=== PATIENT | female | born 1960 | race Caucasian/White ===

== ENCOUNTER 2020-04-13 15:07 | Outpatient (REF) | payer MEDICARE, MEDICAID, SELFPAY | END 2020-04-13 15:08 | disposition home or self-care (01) | LOC: HO.LAB 15:07 | PROVIDERS: PCP Internal Medicine Geriatric Medicine; Visit Provider Internal Medicine | DX: Z20.828 Contact with and (suspected) exposure to other viral communicable diseases (principal) | CPT/HCPCS: C9803; U0003 ==

== ENCOUNTER 2020-04-29 10:55 | Outpatient (REF) | payer MEDICARE, MEDICAID, SELFPAY | END 2020-04-29 10:56 | disposition home or self-care (01) | LOC: HO.LAB 10:55 | PROVIDERS: Visit Provider Internal Medicine | DX: Z20.828 Contact with and (suspected) exposure to other viral communicable diseases (principal) | CPT/HCPCS: C9803; U0003 ==

== ENCOUNTER → 2020-05-18 11:12 | Outpatient (BNVA) | payer MEDICARE, MEDICAID, SELFPAY | PROVIDERS: PCP Internal Medicine Geriatric Medicine; Visit Provider Nurse Practitioner | DX: Z13.89 Encounter for screening for other disorder (principal) | CPT/HCPCS: Q3014 ==

== ENCOUNTER 2020-10-05 10:56 | Outpatient (REF) | payer MEDICARE, MEDICAID, SELFPAY ==
--- NOTE | ~2020-10-05 | XR_ITS ---
EXAMINATION: XR TIBIA AND FIBULA, RIGHT CLINICAL INFORMATION: Right lower leg pain. History of falling. COMPARISON: None TECHNIQUE: AP and lateral views of the right tibia and fibula were obtained. FINDINGS: There is no evidence of acute fracture or dislocation of the right tibia or fibula. Soft tissue swelling seen about the anterior aspect of the proximal tibia. XR/XR tibia fibula RT 2V IMPRESSION: No evidence of acute fracture or dislocation of the right tibia or fibula.
== END 2020-10-05 10:57 | disposition home or self-care (01) ==
LOC: HO.XRAY 10:56
PROVIDERS: PCP Internal Medicine Geriatric Medicine; Visit Provider Emergency Medicine
DX: M79.661 Pain in right lower leg (principal); Z91.81 History of falling
CPT/HCPCS: 73590

== ENCOUNTER 2020-12-02 16:45 | Outpatient (REF) | payer MEDICARE, MEDICAID, SELFPAY ==
--- NOTE | ~2020-12-02 | XR_ITS ---
EXAMINATION: XR RIBS, BILATERAL CLINICAL INFORMATION: Pleurodynia COMPARISON: Previous chest x-ray January 2016 TECHNIQUE: 3 views of the bilateral ribs and one view of the chest were obtained. FINDINGS: The cardiac and mediastinal contours are stable. The thoracic aorta is tortuous. The lungs are clear. There is no pleural effusion or pneumothorax. There are degenerative changes of the spine. XR/XR ribs BI min 4V w CXR1V IMPRESSION: Normal-appearing ribs. Degenerative changes of the thoracic spine. Tortuous thoracic aorta.
== END 2020-12-02 16:46 | disposition home or self-care (01) ==
LOC: HO.XRAY 16:45
PROVIDERS: PCP Internal Medicine Geriatric Medicine; Visit Provider Internal Medicine
DX: R07.81 Pleurodynia (principal)
CPT/HCPCS: 71111

== ENCOUNTER 2021-03-31 11:20 | Outpatient (REF) | payer MEDICARE, MEDICAID, SELFPAY ==
--- NOTE | ~2021-03-31 | US_ITS ---
EXAMINATION: US RETROPERITONEAL COMPLETE (RENAL) CLINICAL INFORMATION: Gross hematuria. COMPARISON: CT abdomen and pelvis 02/17/2019 TECHNIQUE: Real-time imaging of the kidneys and bladder. FINDINGS: RIGHT KIDNEY: 11.5 x 5.9 x 6.1 cm (SAG x AP x TRV). The kidney is normal in size, contour, and echogenicity. Renal cortical thickness is normal. No focal parenchymal lesions or hydronephrosis. Cluster of calculi at the upper pole measuring up to 1.2 cm altogether. LEFT KIDNEY: 11.6 x 6.1 x 4.9 cm (SAG x AP x TRV). The kidney is normal in size, contour, and echogenicity. Renal cortical thickness is normal. No renal calculi or focal parenchymal lesions. There is mild hydronephrosis noted. BLADDER: Well distended and normal. Bilateral ureteral jets are demonstrated. Prevoid bladder volume is 793 mL. Postvoid bladder volume is 21 mL. US/US retroperitoneal comp IMPRESSION: Mild left hydronephrosis. No left-sided calculi seen. Cluster of right upper pole renal calculi.
== END 2021-03-31 11:21 | disposition home or self-care (01) ==
LOC: HO.HMGCX 11:20
PROVIDERS: PCP Internal Medicine Geriatric Medicine; Visit Provider Internal Medicine Geriatric Medicine
DX: R31.0 Gross hematuria (principal); Z87.442 Personal history of urinary calculi
CPT/HCPCS: 76770

== ENCOUNTER 2021-08-16 12:19 | Outpatient (REF) | payer MEDICARE, MEDICAID, SELFPAY ==
--- NOTE | ~2021-08-16 | MM_ITS ---
EXAMINATION: MM SCREENING DIGITAL BREAST TOMOSYNTHESIS, BILATERAL CLINICAL INFORMATION: Screening. Asymptomatic. The lifetime risk of breast cancer based on the Tyrer-Cuzick Model is 8.3%. COMPARISON: Mammography: October 25, 2017 and studies dating back to April 29, 2010 TECHNIQUE: Digital breast tomosynthesis is performed in both the craniocaudal and mediolateral oblique views along with computer-aided detection (CAD). Synthesized 2D images are generated from the tomosynthesis. FINDINGS: There are scattered areas of fibroglandular density (ACR BI-RADS breast composition Category b). There are no significant masses, abnormal calcifications, or other abnormalities. MM/MM tomosynthesis screening BI IMPRESSION: There are no significant changes from prior study. ASSESSMENT: BI-RADS 1: Negative RECOMMENDATION: Routine annual mammography screening. This patient's information was entered into a reminder system with a target due date for their next mammogram.
== END 2021-08-16 12:20 | disposition home or self-care (01) ==
LOC: HO.MAMMO 12:19
PROVIDERS: Visit Provider Internal Medicine Geriatric Medicine
DX: Z12.31 Encounter for screening mammogram for malignant neoplasm of breast (principal)
CPT/HCPCS: 77063; 77067

== ENCOUNTER 2022-03-23 11:14 | Emergency (ER) | payer MEDICARE, MEDICAID, SELFPAY ==
--- NOTE | ~2022-03-23 | CT_ITS ---
EXAMINATION: CT ABDOMEN AND PELVIS WITH CONTRAST CLINICAL INFORMATION: Upper abdominal pain status post fall. COMPARISON: CT scan of the abdomen and pelvis dated 02/17/2019. TECHNIQUE: Multidetector volumetric images were obtained from the superior aspect of the liver through the pubic symphysis following administration 85 mL of Omnipaque 350 intravenous contrast. Sagittal and coronal reformatted images were obtained on the technologist's workstation. Oral contrast: No This CT examination was performed using dose optimization techniques as appropriate, variously including the following: *Automated exposure control *Adjustment of mA and/or kV according to patient size (this includes techniques or standardized protocols for targeted exams where dose is matched to indication/reason for exam; i.e. extremities or head) *Use of iterative reconstruction technique DLP: 395 mGy-cm FINDINGS: LUNG BASES: The visualized lung bases are unremarkable. LIVER, GALLBLADDER, AND BILIARY TREE: Diffuse hepatic low-attenuation. Tiny low-attenuation hepatic foci are seen in the left and right lobes. PANCREAS: Unremarkable. SPLEEN: Absent. ADRENAL GLANDS: Unremarkable. KIDNEYS AND URETERS: Nonobstructing intrarenal calculi bilaterally. A retail field representative calculus in the upper pole the right kidney measures 1.0 cm (image 59, series 7). No hydroureteronephrosis. BLADDER: Unremarkable. GASTROINTESTINAL TRACT: The stomach shows mildly prominent perigastric vessels proximally without significant change. No significant focal mural abnormality or change. The small bowel is unremarkable. No evidence for acute appendicitis. Mild diverticulosis is seen distally in the colon, most pronounced in the sigmoid colon without surrounding abnormality. ABDOMINAL WALL: Left upper quadrant anterior, wall mesh repair. Herniation of the mesh and fat is again seen to a similar degree. There has been interval development of an associated complex fluid collection adjacent to the mesh measuring approximately 3.9 x 3.0 x 3.2 cm (image 32, series 3; image 45, series 8). This collection abuts the anterior margin of the subjacent mid one third of the transverse colon. LYMPH NODES: No lymphadenopathy. VASCULAR: Unremarkable. PELVIC VISCERA: Retroverted/retroflexed uterus. OSSEOUS STRUCTURES: L4-L5 mild degenerative disc disease and grade 1 anterolisthesis without acute abnormality or change. CT/CT abdomen pelvis w IV con IMPRESSION: 1. Left upper quadrant anterior abdominal wall mesh repair with herniation of fat and mesh to a similar degree. There has been interval development of an associated complex fluid collection adjacent to the mesh. This collection abuts the anterior margin of the subjacent mid one third of the transverse colon. This could represent a postoperative hematoma or seroma. An abscess cannot be excluded. No definitive fistulous tract with the subjacent transverse colon. Correlation with physical exam is recommended. Short-term imaging follow-up with contrast-enhanced abdominal CT is recommended in 3 months. 2. Hepatic steatosis. Tiny low-attenuation hepatic foci are too small adequately characterize, but demonstrate benign features and likely represent cysts. 3. Nonobstructing intrarenal calculi bilaterally. 4. Mild distal colonic diverticulosis without evidence for acute diverticulitis. 5. L4-L5 mild degenerative disc disease and grade 1 anterolisthesis without significant change.
[2022-03-23 11:32] VITALS: BP 169/106; PULSE 78; RESP 18; TEMP 36.7; O2SAT 97; BMI 25.4
[2022-03-23 12:57] LABS: Hemoglobin 14.7 g/dl (12.0-16.0); Mean Corpuscular HGB Conc 33.4 g/dl (31.0-35.0); Mean Corpuscular Hemoglobin 28.7 pg (27.0-33.0); Mean Corpuscular Volume 85.8 fL (80.0-98.0); Mean Platelet Volume 8.8 fL (9.4-12.3); Platelet Count 557 X10*3/uL (160-400); Red Blood Count 5.13 X10*6/uL (4.20-5.50); Red Cell Distribution Width 13.3 % (11.0-16.0); White Blood Count 12.5 X10*3/uL (4.8-10.8)
[2022-03-23 13:01] LABS: Appearance Urine Cloudy; Color Urine Dark Yellow; Glucose Urine UA Negative (Negative); Leukocyte Esterase Urine Moderate (2+) (Negative); Nitrite Urine Negative (Negative); PH 5.5 (5.0-9.0); Specific Gravity - Urine 1.025 (1.005-1.025); UMIC TRIGGER UACC YES; Urine Blood Negative (Negative); Urine Ketones Trace mg/dL (Negative); Urine Protein Trace mg/dL (Neg-Trace)
[2022-03-23 13:05] LABS: Bacteria Urine 4+ (None Seen); Hyaline Casts Urine 0-2 /LPF (0-2); Squamous Epithelial Cell Urine >20 /HPF (0-2); UACC Culture Trigger YES; WBC Urine 21-50 /HPF (0-5)
--- NOTE | 2022-03-23 13:08 | ED.ABDPAIN ---
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 Since then the area has become more sore and painful. No associated GI or symptoms. Worried she injured her prior surgical site MD elicited complaint: abdominal pain Pertinent past history: none Onset (ago): week(s) (1) Pain Consistency: constant Location: LUQ Severity: moderate Quality: aching and dull Radiation: none Migration to: no migration Exacerbating factors: movement Relieving factors: nothing Context: recent injury Associated symptoms: denies other symptoms Related Data Previous Rx's Medication Instructions Recorded dicyclomine 20 mg tablet 20 mg PO QID 30 days #120 tabs 04/27/20 simethicone 180 mg capsule (Gas 180 mg PO QID #120 caps 04/27/20 Relief (simethicone)) Allergies Allergy/AdvReac Type Severity Reaction Status Date / Time lisinopril [LISINOPRIL] Allergy Intermediate COUGH Verified 05/18/20 11:12 Penicillins [PENICILLINS] Allergy Intermediate HIVES Verified 05/18/20 11:12 glyburide Allergy Unknown severe Verified 05/18/20 11:12 hypoglycemia penicillin V Allergy Unknown hives Verified 05/18/20 11:12 Pt states no known food Allergy Unknown none Uncoded 04/27/20 13:45 allerg Review of Systems Review of Systems Constitutional : No Weight loss, No Fever, No Chills ENT/Mouth : No sore throat, No Rhinorrhea Eyes: No Swelling, No Redness Cardiovascular : No Chest Pain, No SOB, NoEdema Respiratory : No Cough, No Sputum, No Wheezing Gastrointestinal : no Nausea, noVomiting, no Diarrhea, positive abdominal Pain, No Hematochezia, No Melena Genitourinary : No Dysuria, No Urinary Frequency, No Hematuria, No Urgency Musculoskeletal : No joint pain, No Myalgias, No Joint Swelling Skin : No Skin Lesions, No rash Neuro : No Weakness, No Numbness, No Dizziness, No Headache Psych : No Anxiety/Panic, No Depression Heme/Lymph: No Bruising, No Lymphadenopathy Endocrine : No Polyuria, No Polydipsia All other systems reviewed and are negative. [facility] Past Medical History Attestation statement: The following information was validated with the patient. Medical History Depression with anxiety Diabetes Hernia of abdominal wall Hypertension Osteoarthritis Surgical History H/O esophagogastroduodenoscopy History of colonoscopy Family History Family History (Updated 04/27/20 @ 13:51 by Linda Merino [facility]) Father Throat cancer Dementia Mother Abdominal aortic aneurysm Diverticulitis Brother Diverticulitis Social History Social History (Updated 03/23/22 @ 13:43 by Akila Glynn DO) Alcohol intake: current Alcohol intake frequency: holidays/special occasions only Patient Tobacco Use Status: Never used Tobacco Substance Use Type: Marijuana Advance Directives: No Advance Directives Information Provided: No Physical Exam ED Vital Signs: Vital Signs - 24 hr 03/23/22 11:32 Temperature 98.0 F Pulse Rate 78 Respiratory Rate 18 Blood Pressure 169/106 H Pulse Oximetry 97 Oxygen Delivery Method Room Air BMI result Body Mass Index 25.4 Appearance: Alert. Oriented X3. No acute distress. Eyes: Pupils equal, round and reactive to light. ENT: Pharynx normal. Neck: Normal inspection. Neck supple. CVS: Normal heart rate and rhythm. Pulses normal. Respiratory: No respiratory distress. Breath sounds normal. Abdomen: Soft and ttp along incision reproduces pain no rib ttp Skin: Skin warm and dry. Normal skin color. Normal skin turgor. Extremities: No lower extremity edema. No calf ttp Neuro: Oriented X 3. No motor deficit. No sensory deficit. Course Course Course Narrative: could be small abdominal wall hematoma - not on blood thinners given started after fall suspect hematoma or seroma signed out to Dr. Cesar pending discussion with Dr. 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 IV morphine for pain. Lab Data Result diagrams: 03/23/22 12:46 03/23/22 12:46 Labs: Lab Results 03/23/22 03/23/22 03/23/22 Range/Units 12:46 12:46 12:46 WBC 12.5 H (4.8-10.8) X10*3/uL RBC 5.13 (4.20-5.50) X10*6/uL Hgb 14.7 (12.0-16.0) g/dl Hct 44.0 (37.0-47.0) % MCV 85.8 (80.0-98.0) fL MCH 28.7 (27.0-33.0) pg MCHC 33.4 (31.0-35.0) g/dl RDW 13.3 (11.0-16.0) % Plt Count 557 H (160-400) X10*3/uL MPV 8.8 L (9.4-12.3) fL Immature Gran % (Auto) 0.2 (0.0-0.4) % Neut % (Auto) 39.9 L (45-73) % Lymph % (Auto) 47.4 H (20-40) % [place] % (Auto) 7.2 (2-11) % Eos % (Auto) 3.7 (0-4) % Baso % (Auto) 1.6 (0-2) % Lymph # (Auto) 5.9 H (1.2-4.9) X10*3/uL [place] # (Auto) 0.9 (0.1-1.2) X10*3/uL Eos # (Auto) 0.5 H (0.0-0.4) X10*3/uL Baso # (Auto) 0.2 (0.0-0.2) X10*3/uL Abs Immat Gran (auto) 0.03 (0.00-0.03) X10*3/uL Absolute Neuts (auto) 4.9 (2.0-8.3) x10*3/uL Absolute Nucleated RBC 0.000 (0.0-0.012) X10*3/uL Nucleated RBC % (auto) 0.0 (0.0-0.2) /100WBC Smear Tech's Comments VERIFIED Sodium 142 (135-145) mmol/L Potassium 4.4 (3.3-5.1) mmol/L Chloride 101 (96-108) mmol/L Carbon Dioxide 29 (22-29) mmol/L Anion Gap 16 (12-20) BUN 12 (9-16) mg/dL Creatinine 0.74 (0.5-1.4) mg/dL Estim Creat Clear Calc 67.0 Estimated GFR > 60 Random Glucose 113 (60-115) mg/dL Calcium 10.2 (8.4-10.2) mg/dL Magnesium 1.9 (1.6-2.6) mg/dL Total Bilirubin 0.8 (0.0-1.0) mg/dL Direct Bilirubin 0.3 (0.0-0.5) mg/dL AST 18 (5-31) U/L ALT 12 (0-31) U/L Alkaline Phosphatase 66 (39-117) U/L Troponin I High Sens < 3.5 (<3.5-17.0) ng/L Total Protein 8.1 H (6.5-8.0) g/dL Albumin 4.7 (3.5-5.0) g/dL Lipase 27 (8-78) U/L Urine Color Urine Appearance Urine pH (5.0-9.0) Ur Specific [place] (1.005-1.025) Urine Protein (Neg-Trace) mg/dL Urine Glucose (UA) (Negative) mg/dL Urine Ketones (Negative) mg/dL Urine Blood (Negative) Urine Nitrite (Negative) Ur Leukocyte Esterase (Negative) Urine RBC (0-2) /HPF Urine WBC (0-5) /HPF Ur Squamous Epith Cells (0-2) /HPF Urine Bacteria (None Seen) Hyaline Casts (0-2) /LPF COVID-19 ([facility]) (Negative) COVID-19 Clin Com 03/23/22 03/23/22 Range/Units 12:46 12:53 WBC (4.8-10.8) X10*3/uL RBC (4.20-5.50) X10*6/uL Hgb (12.0-16.0) g/dl Hct (37.0-47.0) % MCV (80.0-98.0) fL MCH (27.0-33.0) pg MCHC (31.0-35.0) g/dl RDW (11.0-16.0) % Plt Count (160-400) X10*3/uL MPV (9.4-12.3) fL Immature Gran % (Auto) (0.0-0.4) % Neut % (Auto) (45-73) % Lymph % (Auto) (20-40) % [place] % (Auto) (2-11) % Eos % (Auto) (0-4) % Baso % (Auto) (0-2) % Lymph # (Auto) (1.2-4.9) X10*3/uL [place] # (Auto) (0.1-1.2) X10*3/uL Eos # (Auto) (0.0-0.4) X10*3/uL Baso # (Auto) (0.0-0.2) X10*3/uL Abs Immat Gran (auto) (0.00-0.03) X10*3/uL Absolute Neuts (auto) (2.0-8.3) x10*3/uL Absolute Nucleated RBC (0.0-0.012) X10*3/uL Nucleated RBC % (auto) (0.0-0.2) /100WBC Smear Tech's Comments Sodium (135-145) mmol/L Potassium (3.3-5.1) mmol/L Chloride (96-108) mmol/L Carbon Dioxide (22-29) mmol/L Anion Gap (12-20) BUN (9-16) mg/dL Creatinine (0.5-1.4) mg/dL Estim Creat Clear Calc Estimated GFR Random Glucose (60-115) mg/dL Calcium (8.4-10.2) mg/dL Magnesium (1.6-2.6) mg/dL Total Bilirubin (0.0-1.0) mg/dL Direct Bilirubin (0.0-0.5) mg/dL AST (5-31) U/L ALT (0-31) U/L Alkaline Phosphatase (39-117) U/L Troponin I High Sens (<3.5-17.0) ng/L Total Protein (6.5-8.0) g/dL Albumin (3.5-5.0) g/dL Lipase (8-78) U/L Urine Color Dark Yellow Urine Appearance Cloudy Urine pH 5.5 (5.0-9.0) Ur Specific [place] 1.025 (1.005-1.025) Urine Protein Trace (Neg-Trace) mg/dL Urine Glucose (UA) Negative (Negative) mg/dL Urine Ketones Trace (Negative) mg/dL Urine Blood Negative (Negative) Urine Nitrite Negative (Negative) Ur Leukocyte Esterase Moderate (2+) H (Negative) Urine RBC 3-5 H (0-2) /HPF Urine WBC 21-50 H (0-5) /HPF Ur Squamous Epith Cells >20 (0-2) /HPF Urine Bacteria 4+ (None Seen) Hyaline Casts 0-2 (0-2) /LPF COVID-19 ([facility]) Negative (Negative) COVID-19 Clin Com See Note Discharge Plan Discharge Clinical Impression: Abdominal pain, Abdominal wall hematoma Patient Disposition: Still a Patient Instructions: Abdominal Pain (ED), Contusion in Adults (ED) Additional Instructions: return to ED for any worsening symptoms or concerns CT/CT abdomen pelvis w IV con IMPRESSION: 1.? Left upper quadrant anterior abdominal wall mesh repair with herniation of fat and mesh to a similar degree. There has been interval development of an associated complex fluid collection adjacent to the mesh. This collection abuts the anterior margin of the subjacent mid one third of the transverse colon. This could represent a postoperative hematoma or seroma. An abscess cannot be excluded. No definitive fistulous tract with the subjacent transverse colon. Correlation with physical exam is recommended. Short-term imaging follow-up with contrast-enhanced abdominal CT is recommended in 3 months. 2.? Hepatic steatosis. Tiny low-attenuation hepatic foci are too small adequately characterize, but demonstrate benign features and likely represent cysts. 3.? Nonobstructing intrarenal calculi bilaterally. 4.? Mild distal colonic diverticulosis without evidence for acute diverticulitis. 5.? L4-L5 mild degenerative disc disease and grade 1 anterolisthesis without significant change. Prescriptions: No Action dicyclomine 20 mg tablet 20 mg PO QID 30 Days Qty: 120 3RF simethicone [Gas Relief (simethicone)] 180 mg capsule 180 mg PO QID Qty: 120 3RF Rx Instructions: after meals
[2022-03-23 13:13] LABS: COVID-19 Test Negative (Negative)
[2022-03-23 13:16] LABS: Alanine Aminotransferase 12 U/L (0-31); Albumin Level 4.7 g/dL (3.5-5.0); Alkaline Phosphatase 66 U/L (39-117); Anion Gap 16 (12-20); Aspartate Amino Transferase 18 U/L (5-31); Bilirubin Direct 0.3 mg/dL (0.0-0.5); Bilirubin Total 0.8 mg/dL (0.0-1.0); Blood Urea Nitrogen 12 mg/dL (9-16); Calcium 10.2 mg/dL (8.4-10.2); Carbon Dioxide 29 mmol/L (22-29); Chloride 101 mmol/L (96-108); Estimated Glomerular Filt Rate > 60; Glucose Random 113 mg/dL (60-115); Lipase 27 U/L (8-78); Magnesium 1.9 mg/dL (1.6-2.6); Potassium 4.4 mmol/L (3.3-5.1); Sodium 142 mmol/L (135-145); Total Protein 8.1 g/dL (6.5-8.0)
[2022-03-23 13:23] LABS: Troponin-I High Sensitivity < 3.5 ng/L (<3.5-17.0)
[2022-03-23 13:32] LABS: Basophils Absolute Auto 0.2 X10*3/uL (0.0-0.2); Basophils Percent Auto 1.6 % (0-2); Eosinophils Absolute Auto 0.5 X10*3/uL (0.0-0.4); Eosinophils Percent Auto 3.7 % (0-4); Imm Gran Abs Auto 0.03 X10*3/uL (0.00-0.03); Imm Gran Pct Auto 0.2 % (0.0-0.4); Lymphocytes Percent Auto 47.4 % (20-40); MANUAL DIFF FLAG SCAN; Monocytes Absolute Auto 0.9 X10*3/uL (0.1-1.2); Monocytes Percent Auto 7.2 % (2-11); Neutrophils Absolute Auto 4.9 x10*3/uL (2.0-8.3); Neutrophils Percent Auto 39.9 % (45-73); SCAN SMEAR FLAG 1
[2022-03-23 13:34] LABS: Lymphocytes Absolute Auto 5.9 X10*3/uL (1.2-4.9)
[2022-03-23 13:48] LABS: SLIDE REVIEW VERIFIED
[2022-03-23] MEDS: Morphine Sulfate 4 MG/ML CARTRIDGE IVPUSH (13:54)
[2022-03-23] MEDS: ondansetron HCL 4 MG/2 ML VIAL IVPUSH (13:54)
[2022-03-23] MEDS: iohexoL 350 MG/ML 100 ML INFUS..BTL IV (15:02)
== END 2022-03-23 17:31 | disposition home or self-care (01) ==
PROVIDERS: Emergency Medicine; Emergency Provider Emergency Medicine; PCP Internal Medicine Geriatric Medicine
DX: R10.12 Left upper quadrant pain (principal); Z79.899 Other long term (current) drug therapy; Z20.822 Contact with and (suspected) exposure to COVID-19
CPT/HCPCS: 74177; 80048; 80076; 81001; 81003; 83690; 83735; 84484; 85025; 87086; 87635; 96374; 96375; 99284; J2270; J2405; Q9967

== ENCOUNTER 2022-08-23 10:58 | Outpatient (REF) | payer MEDICARE, MEDICAID, SELFPAY ==
--- NOTE | ~2022-08-23 | MM_ITS ---
EXAMINATION: MM SCREENING DIGITAL BREAST TOMOSYNTHESIS, BILATERAL CLINICAL INFORMATION: Screening. Asymptomatic. The lifetime risk of breast cancer based on the Tyrer-Cuzick Model is 10%. COMPARISON: Mammography: 08/16/2021, 10/25/2017, 12/09/2015 TECHNIQUE: Digital breast tomosynthesis is performed in both the craniocaudal and mediolateral oblique views along with computer-aided detection (CAD). Synthesized 2D images are generated from the tomosynthesis. FINDINGS: The breasts are almost entirely fatty (ACR BI-RADS breast composition Category a). There are no significant masses, abnormal calcifications, or other abnormalities. No architectural abnormality or developing density or significant change from prior studies. The axilla are unremarkable. MM/MM tomosynthesis screening BI IMPRESSION: No mammographic evidence of malignancy. ASSESSMENT: BI-RADS 1: Negative RECOMMENDATION: Routine annual mammography screening. This patient's information was entered into a reminder system with a target due date for their next mammogram.
== END 2022-08-23 10:59 | disposition home or self-care (01) ==
LOC: HO.MAMMO 10:58
PROVIDERS: PCP Internal Medicine Geriatric Medicine; Visit Provider Internal Medicine Geriatric Medicine
DX: Z12.31 Encounter for screening mammogram for malignant neoplasm of breast (principal)
CPT/HCPCS: 77063; 77067

== ENCOUNTER 2023-10-12 17:37 | Outpatient (REF) | payer MEDICARE, MEDICAID, SELFPAY | END 2023-10-12 17:38 | disposition home or self-care (01) | LOC: HO.HHCLNP 17:37 | PROVIDERS: Visit Provider Registered Nurse | DX: R30.0 Dysuria (principal) | CPT/HCPCS: 87086 ==

== ENCOUNTER 2023-10-24 10:23 | Outpatient (REF) | payer MEDICARE, MEDICAID, SELFPAY ==
[2023-10-24 11:52] LABS: Basophils Absolute Auto 0.2 X10*3/uL (0.0-0.2); Basophils Percent Auto 1.7 % (0-2); Eosinophils Absolute Auto 0.7 X10*3/uL (0.0-0.4); Eosinophils Percent Auto 5.6 % (0-4); Hematocrit 41.6 % (37.0-47.0); Hemoglobin 13.9 g/dl (12.0-16.0); Imm Gran Abs Auto 0.03 X10*3/uL (0.00-0.03); Imm Gran Pct Auto 0.3 % (0.0-0.4); Lymphocytes Absolute Auto 7.3 X10*3/uL (1.2-4.9); Lymphocytes Percent Auto 62.6 % (20-40); MANUAL DIFF FLAG SCAN; Mean Corpuscular HGB Conc 33.4 g/dl (31.0-35.0); Mean Corpuscular Hemoglobin 29.7 pg (27.0-33.0); Mean Corpuscular Volume 88.9 fL (80.0-98.0); Mean Platelet Volume 9.3 fL (9.4-12.3); Monocytes Absolute Auto 0.8 X10*3/uL (0.1-1.2); Neutrophils Absolute Auto 2.7 x10*3/uL (2.0-8.3); Neutrophils Percent Auto 22.8 % (45-73); Platelet Count 523 X10*3/uL (160-400); Red Blood Count 4.68 X10*6/uL (4.20-5.50); Red Cell Distribution Width 13.6 % (11.0-16.0); SCAN SMEAR FLAG 1; White Blood Count 11.7 X10*3/uL (4.8-10.8)
[2023-10-24 12:16] LABS: Alanine Aminotransferase 14 U/L (0-31); Albumin Level 4.5 g/dL (3.5-5.0); Alkaline Phosphatase 69 U/L (39-117); Anion Gap 14 (12-20); Aspartate Amino Transferase 17 U/L (5-31); Bilirubin Total 0.5 mg/dL (0.0-1.0); Blood Urea Nitrogen 10 mg/dL (9-16); Calcium 10.2 mg/dL (8.4-10.2); Carbon Dioxide 29 mmol/L (22-29); Chloride 102 mmol/L (96-108); Cholesterol 277 mg/dL (<200); Estimated Glomerular Filt Rate > 60; Glucose Random 138 mg/dL (60-115); HDL Cholesterol 53 mg/dL (>40); LDL Cholesterol Calculated 171 mg/dL (<100); Potassium 4.1 mmol/L (3.3-5.1); Sodium 141 mmol/L (135-145); Total Protein 8.1 g/dL (6.5-8.0); Triglycerides 269 mg/dL (<150)
[2023-10-24 12:36] LABS: Creatinine Urine 17.43 mg/dL; Microalbum/Creatinine Ratio Ur 34.4 ug/mg cr (<30)
[2023-10-24 13:43] LABS: SLIDE REVIEW VERIFIED
== END 2023-10-24 10:24 | disposition home or self-care (01) ==
LOC: HO.HHCL 10:23
PROVIDERS: Visit Provider Internal Medicine Geriatric Medicine
DX: E11.9 Type 2 diabetes mellitus without complications (principal); F33.2 Major depressive disorder, recurrent severe without psychotic features; I10 Essential (primary) hypertension; Z90.81 Acquired absence of spleen
CPT/HCPCS: 36415; 80053; 80061; 82043; 82570; 85025

== ENCOUNTER 2023-12-26 10:55 | Outpatient (REF) | payer MEDICARE, MEDICAID, SELFPAY ==
[2023-12-26 12:35] LABS: Blood Urea Nitrogen 10 mg/dL (9-16); Estimated Glomerular Filt Rate > 60
== END 2023-12-26 10:56 | disposition home or self-care (01) ==
LOC: HO.HHCL 10:55
PROVIDERS: Visit Provider Internal Medicine Geriatric Medicine
DX: K43.9 Ventral hernia without obstruction or gangrene (principal)
CPT/HCPCS: 36415; 82565; 84520

== ENCOUNTER 2024-02-05 13:59 | Outpatient (AMB) | payer MEDICARE, MEDICAID, SELFPAY ==
[2024-02-05 14:02] VITALS: BP 155/80; PULSE 53; BMI 27.0
--- NOTE | 2024-02-05 14:02 | A.OFFVIS_ITS ---
Vital Signs 3 02/05/24 14:02 Height 5 ft 1 in Weight 142 lb 13.753 oz BMI 27.0 BP 155/80 H Blood Pressure Location Lt brachial Position Sitting Pulse 53 Intake Visit Reasons: Colonoscopy screening Intake Note: New patient in office today for colonoscopy screening. CC: Patient reports doing well from GI standpoint. 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 Accompanied by: Self / Same As Patient Allergies lisinopril [LISINOPRIL] Allergy (Intermediate, Verified 02/05/24 14:06) COUGH Penicillins [PENICILLINS] Allergy (Intermediate, Verified 02/05/24 14:06) HIVES glyburide Allergy (Unknown, Verified 02/05/24 14:06) severe hypoglycemia penicillin V Allergy (Unknown, Verified 02/05/24 14:06) hives Pt states no known food allerg Allergy (Unknown, Uncoded 04/27/20 13:45) none HPI HPI Colonoscopy screening: Details: Assessment & Plan (1) Periumbilical abdominal pain: Code(s): R10.33 - Periumbilical pain Category: Medical Plan: She tells me that she is doing okay. She is uncertain how much the dicyclomine is helping, although she admits she does skip doses. She is also now on doxycycline for a tick bite so there are a lot of variables including the fact that she is eating differently over the holidays that her difficult to factor in. At this point she is willing to continue to experiment with the medication and is agreeable to a 3-4 month follow-up. In the future we could consider moving to something like initial me if she dosing schedule is a problem but I will let her experiment with what she has 3 now since she seals she has excess she shows Using dicyclomine 20mg qid and simethicone. (2) SSBE (short-segment Quintana's esophagus): Comment: Last EGD for surveillance 01/2020 would be due again in 2021 aeb Code(s): K22.70 - Quintana's esophagus without dysplasia Category: Medical (3) GERD (gastroesophageal reflux disease): Code(s): K21.9 - Gastro-esophageal reflux disease without esophagitis Category: Medical (4) Irritable bowel syndrome with both constipation and diarrhea: Code(s): K58.2 - Mixed irritable bowel syndrome Category: Medical PMX Hypertension Diabetes Barretts esophagus GERD IBS-M Generalized osteoarthritis hands * . LABS: Laboratory Tests 10/24/23 10:25 WBC 11.7 H Hgb 13.9 Hct 41.6 Plt Count 523 H Estimated GFR > 60 Total Bilirubin 0.5 AST 17 ALT 14 Alkaline Phosphatase 69 TODAY'S VISIT Patient has been lost to follow-up since 2019 and is apparently here today for colonoscopy re-screening he, she would also be due for surveillance for her Barretts esophagus. Her last was in 2019 but no biopsy for SSBE. She is having some LLQ abd pain that is tender it is worse with sitting or pushing on the area and it has some radiation to the umbilicus. She DOES have a hx of hernia repair with mesh, so I think A CT is in order to make sure there is no inflammation that would effect scope. Her past IBS-M has been well controlled. She is eating better and not on the go and her HB and GERD has been improved. She has lost some weight as well wtih intentional dieting. She is having a lot of problems with Medicare and her coverage. She had one episode of waking up during endoscopy, no other anesthesia or sedation problems. She denies any cardiac or respiratory problems. There are no infectious disease problems known. No known FHX crc or polyps and she had a neg colonoscopy in 2011. ROV after CT scan. [facility] Medical History (Updated 02/05/24 @ 14:16 by ABNER Abreu) Asplenia Depression with anxiety Hernia of abdominal wall Diabetes Osteoarthritis Hypertension Surgical History (Updated 02/05/24 @ 14:15 by ABNER Abreu) History of incisional hernia repair History of pancreatectomy H/O splenectomy H/O esophagogastroduodenoscopy History of colonoscopy Family History Father Throat cancer Dementia Mother Abdominal aortic aneurysm Diverticulitis Brother Diverticulitis Social History Alcohol intake: current Alcohol intake frequency: holidays/special occasions only Patient Tobacco Use Status: Never used Tobacco Substance Use Type: Marijuana Review of Systems Const Denies fatigue, Denies fever(s), Denies night sweats, Denies poor appetite and Denies weight loss Eyes Details: glasses Reports requires corrective lenses ENT Reports Normal hearing present, Denies dental pain, Denies dysphagia, Denies hearing loss, Denies mouth pain, Denies odynophagia, Denies throat swelling, Denies tongue swelling and Reports other (Dentition adequate) Card Reports no additional complaints Resp Reports no additional complaints GI Details: Reports abdominal pain, Denies melena, Denies bloating, Denies hematochezia, Denies constipation, Denies GI cramping, Denies dysphagia, Denies excessive flatus, Denies early satiety, Reports heartburn, Denies diarrhea, Denies nausea, Denies odynophagia, Denies vomiting and Denies hematemesis Musc Reports deformity, Reports arthralgias and Reports joint swelling Skin/Breast Denies pruritus, Denies lesions, Denies rash and Denies jaundice Neuro Reports Normal hearing present and Denies Abnormal speech present Psych Reports anxiety, Reports depression, Denies homicidal ideation and Denies suicidal ideation Endo Denies fatigue Aller/Immun Denies throat swelling and Denies tongue swelling Physical Exam Vital Signs: Last Vital Signs Pulse 53 02/05/24 14:02 BP 155/80 H 02/05/24 14:02 BMI result Body Mass Index 27.0 Const General: cooperative, no acute distress, well developed and well groomed Nutritional Appearance: well nourished and overweight Orientation/consciousness: oriented to person, oriented to place and oriented to time Limitations: No language barrier HEENT Head: Yes normocephalic and Yes atraumatic Eyes General: appearance normal, both eyes and all related structures Pupils: Equal, round and reactive pupils present Neck Neck: Yes normal visual inspection and Yes no lymphadenopathy Thyroid: Thyroid normal Resp Effort & Inspection: normal respiratory effort and able to speak in complete sentences Auscultation: clear to auscultation bilaterally Cardio Rate: regular rate Rhythm: regular rhythm Heart sounds: Normal, physiologic split S2 sound present Peripheral pulses: radial pulses present and posterior tibial pulses present GI Inspection: No distended, No Abdominal panniculus present and Yes obesity Palpation (GI): Soft to palpation, Tenderness to palpation present (GI) periumbilically, no guarding, not rigid and No hepatosplenomegaly present Percussion: Yes normal to percussion Auscultation: normal bowel sounds Rectal Exam - Female: deferred Abdomen image: 2 1. scar Skin General skin exam: no rashes or lesions noted, turgor normal, skin not dry, no jaundice, No spider nevi and no striae Rashes: no rashes Nails: normal Neuro General: oriented to person, oriented to place and oriented to time Cranial nerves: Yes Equal, round and reactive pupils present and Yes Normal hearing present Speech: No Abnormal speech present Extrem General: Yes normal to inspection, No clubbing, No cyanosis and No edema Psych Appearance: grossly normal and well kempt Mental Status: mental status grossly normal Speech and movement: Normal speech and movement present Affect: normal affect Attitude: cooperative Thought process: Normal thought process present and not confabulating Thought content: Normal thought content present Insight: Fair insight present (Psych) Judgement: Fair judgement present (Psych) Results Reviewed Results Reviewed: Laboratory Tests 10/24/23 10:25 WBC 11.7 H Hgb 13.9 Hct 41.6 Plt Count 523 H Estimated GFR > 60 Total Bilirubin 0.5 AST 17 ALT 14 Alkaline Phosphatase 69 Assessment & Plan Assessment & Plan (1) SSBE (short-segment Quintana's esophagus): Comment: Last EGD for surveillance 01/2020 would be due again in 2021 aeb, showed metaplasia on her 2014 and 2017 EGD it does not appear was biopsied in 2019 Code(s): K22.70 - Uqintana's esophagus without dysplasia Category: Medical (2) Pre-op examination: Code(s): Z01.818 - Encounter for other preprocedural examination Category: Medical (3) Periumbilical abdominal pain: Code(s): R10.33 - Periumbilical pain Category: Medical Plan Patient has been lost to follow-up since 2019 and is apparently here today for colonoscopy re-screening he, she would also be due for surveillance for her Barretts esophagus. Her last was in 2019 but no biopsy for SSBE. She is having some LLQ abd pain that is tender it is worse with sitting or pushing on the area and it has some radiation to the umbilicus. She DOES have a hx of hernia repair with mesh, so I think A CT is in order to make sure there is no inflammation that would effect scope. Her past IBS-M has been well controlled. She is eating better and not on the go and her HB and GERD has been improved. She has lost some weight as well with intentional dieting. She is having a lot of problems with Medicare and her coverage. She had one episode of waking up during endoscopy, no other anesthesia or sedation problems. She denies any cardiac or respiratory problems. There are no infectious disease problems known. No known FHX crc or polyps and she had a neg colonoscopy in 2011. ROV after CT scan. Orders: Orders 2 EGD/[place] [facility]bo - GI Use Only 02/05/24 K22.70 - Quintana's esophagus without dysplasia, Z01.818 - Encounter for other preprocedural examination CT abdomen pelvis w IV con 02/05/24 R10.33 - Periumbilical pain Medications: New 2 bisacodyl (Dulcolax (bisacodyl)) 10 mg (2 x 5 mg) PO BEDTIME 4 tabs 0RF 2 days peg 3350-electrolytes 236-22.74-6.74 -5.86 gram (Golytely) until fecal effluent is clear; do not exceed a total volume of 2,000 mL 240 mL PO Q10M 4,000 mL 0RF 1 day Z12.11 - Encounter for screening for malignant neoplasm of colon Coding Level of Care Code Est Pt Level 4 (55877) Diagnoses SSBE (short-segment Quintana's esophagus) K22.70 Pre-op examination Z01.818 Periumbilical abdominal pain R10.33 Time Spent (min) 38
== END 2024-02-05 14:47 | disposition home or self-care (01) ==
PROVIDERS: PCP Internal Medicine Geriatric Medicine; Visit Provider Nurse Practitioner
DX: K22.70 Barrett's esophagus without dysplasia (principal); Z01.818 Encounter for other preprocedural examination; R10.33 Periumbilical pain
CPT/HCPCS: 99214

== ENCOUNTER → 2024-02-05 13:59 | Outpatient (BNVA) | payer MEDICARE, MEDICAID, SELFPAY | PROVIDERS: PCP Internal Medicine Geriatric Medicine; Visit Provider Nurse Practitioner | DX: Z01.818 Encounter for other preprocedural examination (principal); R10.33 Periumbilical pain; K22.70 Barrett's esophagus without dysplasia | CPT/HCPCS: 99212 ==

== ENCOUNTER 2024-02-16 10:28 | Outpatient (REF) | payer MEDICARE, MEDICAID, SELFPAY ==
[2024-02-16 12:08] LABS: Anion Gap 12 (12-20); Blood Urea Nitrogen 9 mg/dL (9-16); Calcium 9.2 mg/dL (8.4-10.2); Carbon Dioxide 27 mmol/L (22-29); Chloride 109 mmol/L (96-108); Estimated Glomerular Filt Rate > 60; Glucose Random 122 mg/dL (60-115); Potassium 4.1 mmol/L (3.3-5.1); Sodium 144 mmol/L (135-145)
== END 2024-02-16 10:29 | disposition home or self-care (01) ==
LOC: HO.LAB 10:28
PROVIDERS: PCP Internal Medicine Geriatric Medicine; Visit Provider Internal Medicine Geriatric Medicine
DX: K43.9 Ventral hernia without obstruction or gangrene (principal)
CPT/HCPCS: 36415; 80048

== ENCOUNTER 2024-05-26 07:13 | Outpatient (REF) | payer MEDICARE, MEDICAID, SELFPAY ==
--- NOTE | ~2024-05-26 | CT_ITS ---
CLINICAL HISTORY: R10.33 - Periumbilical pain CT abdomen and pelvis with contrast Comparison: CT - CT ABDOMEN PELVIS W IV CON - 03/23/22 14:[address]/OK/SR - CT ABDOMEN PELVIS W IV CON - 03/23/22 14:21 EDT Findings: The visualized portions of the lungs are normal in appearance. The liver is normal in size without suspicious focal hepatic lesions. Hepatic steatosis. Multiple small hypodensities are too small to characterize statistically representing cyst or hemangioma. No intrahepatic or extrahepatic ductal dilatation is seen. The hepatic and portal veins are patent. No calcified gallstones in the gallbladder. Adrenals are unremarkable. Distal pancreatectomy. Splenectomy. No suspicious focal lesion of the kidneys. No hydronephrosis. There is a stone in the right renal pelvis. The abdominal aorta demonstrates no evidence of aneurysmal dilatation or dissection. Colonic diverticulosis. No evidence of bowel obstruction. Appendix is normal. Possible uterine fibroid. No intraperitoneal free air is visualized. No pathologic lymphadenopathy is seen. Status post mesh repair of supraumbilical ventral hernia. There is retraction of the mesh with a 2 x 3 cm complex fluid collection adjacent to the mesh series 3, image 29. There is a abutting of the fluid collection to the transverse colon. There are no osseous or soft tissue abnormalities. IMPRESSION: Status post mesh repair of supraumbilical ventral hernia. There is retraction of the mesh. Grossly stable complex fluid collection adjacent to the mesh. Nonobstructing right kidney stone. Colonic diverticulosis. Additional findings as above. This document has been electronically signed by: Ander Iverson MD on 05/26/2024 16:33:23
[2024-05-26] MEDS: iohexoL 350 MG/ML 75 ML INFUS..BTL 85 ML IV (09:23)
[2024-05-26] MEDS: Barium Sulfate Oral (Vanilla) 450 ML ORAL.SUSP PO (09:23)
[2024-05-26 16:20] LABS: Creatinine POC 0.6 mg/dL (0.5-1.4); GFR POC > 60
== END 2024-05-26 07:14 | disposition home or self-care (01) ==
LOC: HO.CT 07:13
PROVIDERS: PCP Internal Medicine Geriatric Medicine; Visit Provider Nurse Practitioner
DX: R10.33 Periumbilical pain (principal)
CPT/HCPCS: 74177; 82565; Q9967

== ENCOUNTER → 2024-05-26 07:14 | Outpatient (BNV) | payer MEDICARE, MEDICAID, SELFPAY | PROVIDERS: PCP Internal Medicine Geriatric Medicine; Visit Provider Nuclear Medicine | DX: T83.718A Erosion of other implanted mesh to organ or tissue, initial encounter (principal); K57.30 Diverticulosis of large intestine without perforation or abscess without bleeding; N20.0 Calculus of kidney | CPT/HCPCS: 74177 ==

== ENCOUNTER 2024-06-09 05:41 | Day surgery (SDC) | payer MEDICARE, MEDICAID, SELFPAY ==
[2024-06-02 14:25] VITALS: BMI 28.5
--- NOTE | 2024-06-05 14:37 | P.CONAN_ITS ---
Documented by User: Tanya Alford NP 06/05/24 14:38 HPI - Anesthesia Eval Consult details Narrative: 63yo F for Right Cataract Extraction IOL Insertion No previous cataract on record PMF Active Problems Active Problems: All Active Problems Pre-op examination (Acute) Strabismus (Acute) Attention deficit disorder (Acute) Periumbilical abdominal pain (Acute) SSBE (short-segment Quintana's esophagus) (Acute) GERD (gastroesophageal reflux disease) (Acute) Irritable bowel syndrome with both constipation and diarrhea (Acute) Past Medical History Medical History Raynauds phenomenon Renal calculi IBS (irritable bowel syndrome) GERD (gastroesophageal reflux disease) ADD (attention deficit disorder) Barretts esophagus Asplenia Depression with anxiety Hernia of abdominal wall Diabetes Osteoarthritis Hypertension Family History Family History Father Throat cancer Dementia Mother Abdominal aortic aneurysm Diverticulitis Brother Diverticulitis Surgical History Surgical History History of incisional hernia repair History of pancreatectomy H/O splenectomy H/O esophagogastroduodenoscopy History of colonoscopy Social History Social History Household Members Other:: daughter Alcohol intake: current Alcohol intake frequency: holidays/special occasions only Patient Tobacco Use Status: Never used Tobacco Use of substances other than those prescribed or required for medical reasons: Yes Substance Use Type: Marijuana Spiritual Healthcare Practices: none Judaism Healthcare Practices: none Cultural Healthcare Practices: none Advance Directives on File: No FDLMP: n/a Meds Allergies Allergy/AdvReac Type Severity Reaction Status Date / Time glyburide Allergy Severe severe Verified 04/07/24 09:24 hypoglycemia lisinopril [LISINOPRIL] Allergy Intermediate COUGH Verified 02/05/24 14:06 Penicillins [PENICILLINS] Allergy Intermediate HIVES Verified 02/05/24 14:06 Home Medications ?Medication ?Instructions ?Recorded ?Confirmed ?Last Taken ?Type clonazepam 0.5 mg tablet 1 mg PO BID PRN Anxiety 02/05/24 06/02/24 Unknown History lamotrigine 200 mg tablet 200 mg PO QAM 02/05/24 06/02/24 Unknown History metformin 500 mg tablet 500 mg PO BID 02/05/24 06/02/24 Unknown History metoprolol tartrate 50 mg tablet 50 mg PO BID 02/05/24 06/02/24 Unknown History omeprazole 20 mg capsule,delayed 20 mg PO QAM 02/05/24 06/02/24 Unknown History release amlodipine 2.5 mg tablet 2.5 mg PO DAILY 06/02/24 06/02/24 Unknown History atorvastatin 20 mg tablet 20 mg PO DAILY 06/02/24 06/02/24 Unknown History Exam Height,Weight and Vital Signs: Height 5 ft 1 in Weight 68.492 kg Assessment and Plan Assessment Anesthesia Assessment: Chart Reviewed Documented by User: Renetta Fermin MD 06/09/24 08:26 [facility] Active Problems Active Problems: All Active Problems Pre-op examination (Acute) Strabismus (Acute) Attention deficit disorder (Acute) Periumbilical abdominal pain (Acute) SSBE (short-segment Quintana's esophagus) (Acute) GERD (gastroesophageal reflux disease) (Acute) Irritable bowel syndrome with both constipation and diarrhea (Acute) Marijuana use Past Medical History Medical History Raynauds phenomenon Renal calculi IBS (irritable bowel syndrome) GERD (gastroesophageal reflux disease) ADD (attention deficit disorder) Barretts esophagus Asplenia Depression with anxiety Hernia of abdominal wall Diabetes Osteoarthritis Hypertension Family History Family History Father Throat cancer Dementia Mother Abdominal aortic aneurysm Diverticulitis Brother Diverticulitis Family history of problems with anesthesia: No Surgical History Surgical History History of incisional hernia repair History of pancreatectomy H/O splenectomy H/O esophagogastroduodenoscopy History of colonoscopy History of Problems with Anesthesia: No Social History Social History Household Members Other:: daughter Alcohol intake: current Alcohol intake frequency: holidays/special occasions only Patient Tobacco Use Status: Never used Tobacco Use of substances other than those prescribed or required for medical reasons: Yes Substance Use Type: Marijuana Spiritual Healthcare Practices: none Judaism Healthcare Practices: none Cultural Healthcare Practices: none Advance Directives on File: No FDLMP: n/a Meds Allergies Allergy/AdvReac Type Severity Reaction Status Date / Time glyburide Allergy Severe severe Verified 04/07/24 09:24 hypoglycemia lisinopril [LISINOPRIL] Allergy Intermediate COUGH Verified 02/05/24 14:06 Penicillins [PENICILLINS] Allergy Intermediate HIVES Verified 02/05/24 14:06 Home Medications ?Medication ?Instructions ?Recorded ?Confirmed ?Last Taken ?Type clonazepam 0.5 mg tablet 1 mg PO BID PRN Anxiety 02/05/24 06/02/24 Unknown History lamotrigine 200 mg tablet 200 mg PO QAM 02/05/24 06/02/24 Unknown History metformin 500 mg tablet 500 mg PO BID 02/05/24 06/02/24 Unknown History metoprolol tartrate 50 mg tablet 50 mg PO BID 02/05/24 06/02/24 Unknown History omeprazole 20 mg capsule,delayed 20 mg PO QAM 02/05/24 06/02/24 Unknown History release amlodipine 2.5 mg tablet 2.5 mg PO DAILY 06/02/24 06/02/24 Unknown History atorvastatin 20 mg tablet 20 mg PO DAILY 06/02/24 06/02/24 Unknown History Exam Height,Weight and Vital Signs: Height 5 ft 1 in Weight 68.492 kg Vital Signs Temp Pulse Resp BP Pulse Ox 06/09/24 07:11 98.4 F 71 16 134/78 98 Pertinent Lab Results Pertinent Lab Results: Lab Results 06/09/24 Range/Units 07:18 POC Glucose 138 H (60-115) mg/dL Airway Mallampati Class: II TM Dist: >3cm Neck ROM: Full Loose/Missing/Broken Teeth: Yes (Several loose teeth. Broken tooth bottom Right back) Heart: RRR Lungs: CTAB Assessment and Plan Assessment Anesthesia Assessment: Anesthesia Plan Discussed and Chart Reviewed Final Anesthetic Review Family History of Problems with Anesthesia: No History of Problems with Anesthesia: No NPO: Yes ASA Class: II Final Preanesthetic Review: No Changes in Pt Med Stat, Meds/Allgs Chart Reviewed, Consent Obtained/Reviewed and Anes Risks/Benef Reviewed Patient Risk: Intermediate Procedure Risk: Low Assessment/Block/Sedation in SS: Assess/Block/Sedation-SS Anesthetic Plan Anesthetic Plan: MAC: Disposition: Standard PACU
[2024-06-09 07:11] VITALS: BP 134/78; PULSE 71; RESP 16; TEMP 36.9; O2SAT 98; BMI 28.3
[2024-06-09] MEDS: Tetracaine HCl/PF 0.5% Oph Sol 4 ML DROPS 1 DROP EYE-RIGHT (07:15)
[2024-06-09] MEDS: Cyclopentolate 1 % Ophth Sol 2 ML DRPBTL 1 DROP EYE-RIGHT ×3 (07:19→07:37)
[2024-06-09] MEDS: Tropicamide 1 % Ophth Sol 3 ML BTL 1 DROP EYE-RIGHT ×3 (07:21→07:39)
[2024-06-09 07:22] LABS: Glucose, Whole Blood 138 mg/dL (60-115)
[2024-06-09] MEDS: Ketorolac Tromethamine 0.5% Op 10 ML DROPS 1 DROP EYE-RIGHT ×3 (07:25→07:42)
[2024-06-09] MEDS: Phenylephrine HCL 2.5% Oph SoL 2 ML BOTTLE 1 DROP EYE-RIGHT ×3 (07:27→07:45)
[2024-06-09] MEDS: Lactated Ringers 500 ML 50 ML IV (07:31)
--- NOTE | 2024-06-09 08:04 | P.PCNO_ITS ---
Ophthalmology Procedure Procedure Date of Service: 06/09/24 Ophthalmology Viscoelastic: Healon Duet Dual Pack Pro Ophthalmology Lenses: IOL Acrysof MP - [id number] (17) Procedure Notes: PREOPERATIVE DIAGNOSIS: Decreased visual acuity right eye secondary to cataract POSTOPERATIVE DIAGNOSIS: Same PROCEDURE: Right cataract extraction with intraocular lens insertion SURGEON: Paulo Hastings M.D. ANESTHESIA: Topical/MAC ESTIMATED BLOOD LOSS: None COMPLICATIONS: None After obtaining informed consent, the patient was brought to the operating room suite and placed in the supine position. After adequate sedation per anesthesia, topical drops of Tetracaine were given to the right eye. The eye was then prepped and draped in the usual sterile fashion. The operating room microscope was then positioned over the operative eye and a lid speculum placed. A paracentesis was created. Viscoelastic was then instilled into the anterior chamber. A three plane incision was then created temporally, utilizing a 2.85 mm keratome. Capsulotomy forceps were then utilized to create a circular tear capsulotomy. Hydrodissection and hydrodelineation were carried out until adequate mobilization of the nucleus occurred. Phacoemulsification was then utilized to remove the dense central nucl eus followed by removal of the cortical material utilizing the automated aspiration irrigation unit. Viscoelastic was instilled into the posterior capsular bag followed by placement of a posterior chamber intraocular lens without difficulty. The residual Viscoelastic was then removed utilizing the automated IA machine. The wound was checked and found to be watertight. The patient tolerated the procedure well and the lid speculum was removed. Intracameral injection of Vigamox 0.1 mL followed by a subtenon injection of Kenalog-40 0.2 mL were administered. The patient will be seen in the a.m.
--- NOTE | 2024-06-09 08:04 | MHC.SHP ---
Pre-Procedural Eval Section A - 24 Hr Update-Section A only Date of Service: 06/09/24 The patient is an INPATIENT: No Changes since office visit: No Cold of Flu in the past 2 weeks, No New Medical Problems, No Changes in Medication and No Patient answered all questions The patient has been examined within 24 hours of the surgical procedure. The History & Physical has been completed within 30 days and I have reviewed it.: Yes Section B - Complete if H&P > 30 days Chief Complaint: Age-related nuclear cataract, right eye Allergies: Allergies Allergy/AdvReac Type Severity Reaction Status Date / Time glyburide Allergy Severe severe Verified 04/07/24 09:24 hypoglycemia lisinopril [LISINOPRIL] Allergy Intermediate COUGH Verified 02/05/24 14:06 Penicillins [PENICILLINS] Allergy Intermediate HIVES Verified 02/05/24 14:06 Plan Diagnosis/Plan: Unchanged I have reviewed the history and physical and performed a pertinent physical examination on my patient. No changes have occurred unless specified. Time Spent With Patient Time: Total time managing care of this patient today ____ minutes.
[2024-06-09 08:37] VITALS: BP 124/81; PULSE 57; RESP 14; TEMP 36.3; O2SAT 99
== END 2024-06-09 08:39 | disposition home or self-care (01) ==
PROVIDERS: PCP Internal Medicine Geriatric Medicine; Visit Provider Ophthalmology
PROC: (CPT 66985; principal; 2024-06-09 08:00)
DX: H25.11 Age-related nuclear cataract, right eye (principal); H52.4 Presbyopia; H50.10 Unspecified exotropia; Z83.518 Family history of other specified eye disorder; I10 Essential (primary) hypertension; E11.9 Type 2 diabetes mellitus without complications; I73.00 Raynaud's syndrome without gangrene; L30.9 Dermatitis, unspecified; Z79.84 Long term (current) use of oral hypoglycemic drugs; Z79.899 Other long term (current) drug therapy; Z88.0 Allergy status to penicillin; Z88.8 Allergy status to other drugs, medicaments and biological substances
CPT/HCPCS: 66984; 82947; J2250; J3010; J3301; V2630

== ENCOUNTER 2024-06-12 09:51 | Day surgery (SDC) | payer MEDICARE, MEDICAID, SELFPAY ==
[2024-06-10 11:32] VITALS: BMI 28.5
--- NOTE | 2024-06-11 09:02 | HO.ANESPROP2 ---
HPI - Anesthesia Eval Consult details Narrative: 63yo F for Upper Endoscopy and Colonoscopy COUNTS INCLUDE 234 BEDS AT THE [facility] Active Problems Active Problems: All Active Problems Pre-op examination (Acute) Strabismus (Acute) Attention deficit disorder (Acute) Periumbilical abdominal pain (Acute) SSBE (short-segment Quintana's esophagus) (Acute) GERD (gastroesophageal reflux disease) (Acute) Irritable bowel syndrome with both constipation and diarrhea (Acute) Past Medical History Medical History Raynauds phenomenon Renal calculi IBS (irritable bowel syndrome) GERD (gastroesophageal reflux disease) ADD (attention deficit disorder) Barretts esophagus Asplenia Depression with anxiety Hernia of abdominal wall Diabetes Osteoarthritis Hypertension Family History Family History Father Throat cancer Dementia Mother Abdominal aortic aneurysm Diverticulitis Brother Diverticulitis Family history of problems with anesthesia: No Surgical History Surgical History (Updated 06/10/24 @ 11:31 by Mitzi Steve RN) Hx of right cataract extraction History of incisional hernia repair History of pancreatectomy H/O splenectomy H/O esophagogastroduodenoscopy History of colonoscopy History of Problems with Anesthesia: No Social History Social History Household Members Other:: daughter Alcohol intake: current Alcohol intake frequency: holidays/special occasions only Patient Tobacco Use Status: Never used Tobacco Use of substances other than those prescribed or required for medical reasons: Yes Substance Use Type: Marijuana Spiritual Healthcare Practices: none Latter-Day Healthcare Practices: none Cultural Healthcare Practices: none Advance Directives on File: No FDLMP: n/a Meds Allergies Allergy/AdvReac Type Severity Reaction Status Date / Time glyburide Allergy Severe severe Verified 04/07/24 09:24 hypoglycemia lisinopril [LISINOPRIL] Allergy Intermediate COUGH Verified 02/05/24 14:06 Penicillins [PENICILLINS] Allergy Intermediate HIVES Verified 02/05/24 14:06 Home Medications ?Medication ?Instructions ?Recorded ?Confirmed ?Last Taken ?Type clonazepam 0.5 mg tablet 1 mg PO BID PRN Anxiety 02/05/24 06/10/24 Unknown History lamotrigine 200 mg tablet 200 mg PO QAM 02/05/24 06/10/24 Unknown History metformin 500 mg tablet 500 mg PO BID 02/05/24 06/10/24 Unknown History metoprolol tartrate 50 mg tablet 50 mg PO BID 02/05/24 06/10/24 Unknown History omeprazole 20 mg capsule,delayed 20 mg PO QAM 02/05/24 06/10/24 Unknown History release amlodipine 2.5 mg tablet 2.5 mg PO DAILY 06/02/24 06/10/24 Unknown History atorvastatin 20 mg tablet 20 mg PO DAILY 06/02/24 06/10/24 Unknown History Exam Height,Weight and Vital Signs: Height 5 ft 1 in Weight 68.492 kg Pertinent Lab Results Pertinent Lab Results: Laboratory Tests 10/24/23 02/16/24 10:25 10:36 WBC 11.7 H Hgb 13.9 Hct 41.6 Plt Count 523 H Sodium 144 Potassium 4.1 Chloride 109 H Carbon Dioxide 27 BUN 9 Creatinine 0.81 Assessment and Plan Assessment Anesthesia Assessment: Chart Reviewed Final Anesthetic Review Family History of Problems with Anesthesia: No History of Problems with Anesthesia: No
--- NOTE | 2024-06-12 10:15 | HO.ANESPROP2 ---
FORMERLY [facility] Active Problems Active Problems: All Active Problems Pre-op examination (Acute) Strabismus (Acute) Attention deficit disorder (Acute) Periumbilical abdominal pain (Acute) SSBE (short-segment Quintana's esophagus) (Acute) GERD (gastroesophageal reflux disease) (Acute) Irritable bowel syndrome with both constipation and diarrhea (Acute) Past Medical History Medical History Raynauds phenomenon Renal calculi IBS (irritable bowel syndrome) GERD (gastroesophageal reflux disease) ADD (attention deficit disorder) Barretts esophagus Asplenia Depression with anxiety Hernia of abdominal wall Diabetes Osteoarthritis Hypertension Functional capacity: independent ambulation Patient : No Family History Family History Father Throat cancer Dementia Mother Abdominal aortic aneurysm Diverticulitis Brother Diverticulitis Family history of problems with anesthesia: No Surgical History Surgical History Hx of right cataract extraction History of incisional hernia repair History of pancreatectomy H/O splenectomy H/O esophagogastroduodenoscopy History of colonoscopy History of Problems with Anesthesia: No Social History Social History Household Members Other:: daughter Are you a primary manager progressive care to a significant other at home: No Do you presently have visiting nurse or other home services: No Alcohol intake: current Alcohol intake frequency: does not drink Patient Tobacco Use Status: Never used Tobacco Substance Use Type: Marijuana Meds Allergies Allergy/AdvReac Type Severity Reaction Status Date / Time glyburide Allergy Severe severe Verified 06/12/24 10:22 hypoglycemia lisinopril [LISINOPRIL] Allergy Intermediate COUGH Verified 06/12/24 10:22 Penicillins [PENICILLINS] Allergy Intermediate HIVES Verified 06/12/24 10:22 Active Medications: Current Medications Lactated Ringer's (Lr) 1,000 mls @ 100 mls/hr IVCONT .Q10H SHON Home Medications ?Medication ?Instructions ?Recorded ?Confirmed ?Last Taken ?Type clonazepam 0.5 mg tablet 1 mg PO BID PRN Anxiety 02/05/24 06/12/24 Unknown History lamotrigine 200 mg tablet 200 mg PO QAM 02/05/24 06/12/24 Unknown History metformin 500 mg tablet 500 mg PO BID 02/05/24 06/12/24 Unknown History metoprolol tartrate 50 mg tablet 50 mg PO BID 02/05/24 06/12/24 Unknown History omeprazole 20 mg capsule,delayed 20 mg PO QAM 02/05/24 06/12/24 Unknown History release amlodipine 2.5 mg tablet 2.5 mg PO DAILY 06/02/24 06/12/24 Unknown History atorvastatin 20 mg tablet 20 mg PO DAILY 06/02/24 06/12/24 Unknown History Exam Height,Weight and Vital Signs: Height 5 ft 1 in Weight 68.492 kg Airway Mallampati Class: II TM Dist: >3cm Neck ROM: Full Heart: RRR Lungs: CTA Assessment and Plan Assessment Anesthesia Assessment: Anesthesia Plan Discussed and Chart Reviewed Final Anesthetic Review Family History of Problems with Anesthesia: No History of Problems with Anesthesia: No NPO: Yes ASA Class: II Final Preanesthetic Review: Meds/Allgs Chart Reviewed, Consent Obtained/Reviewed and Anes Risks/Benef Reviewed Patient Risk: Low Procedure Risk: Low Anesthetic Plan Anesthetic Plan: MAC: Disposition: Standard PACU
[2024-06-12 10:24] VITALS: BP 139/74; PULSE 68; RESP 16; TEMP 36.9; O2SAT 98; BMI 27.8
[2024-06-12] MEDS: Lactated Ringers 1,000 ML 100 ML IVCONT (10:27)
[2024-06-12 10:43] LABS: Glucose, Whole Blood 118 mg/dL (60-115)
--- NOTE | 2024-06-12 10:45 | MHC.SHP ---
Pre-Procedural Eval Section A - 24 Hr Update-Section A only Date of Service: 06/12/24 Section B - Complete if H&P > 30 days Chief Complaint: Quintana's esophagus w/o dysplasia,periumbilical Details of Present Illness: Asplenia Depression with anxiety Hernia of abdominal wall Diabetes Osteoarthritis Hypertension Surgical History (Updated 02/05/24 @ 14:15 by ABNER Abreu) History of incisional hernia repair History of pancreatectomy H/O splenectomy H/O esophagogastroduodenoscopy History of colonoscopy Allergies: Allergies Allergy/AdvReac Type Severity Reaction Status Date / Time glyburide Allergy Severe severe Verified 06/12/24 10:22 hypoglycemia lisinopril [LISINOPRIL] Allergy Intermediate COUGH Verified 06/12/24 10:22 Penicillins [PENICILLINS] Allergy Intermediate HIVES Verified 06/12/24 10:22 Review of Systems Review of Systems Comment: Ten point ROS negative Exam Exam Comment: Gen appear: No acute distress HEENT: no icterus Chest: No overt resp distress Abd: soft, nontender, nondistended Psych: Stable affect, answering questions appropriately Neuro: A/Ox3 noted to move all extremities spontaneously Ext: no peripheral edema Plan Diagnosis/Plan: Unchanged I have reviewed the history and physical and performed a pertinent physical examination on my patient. No changes have occurred unless specified. Time Spent With Patient Time: Total time managing care of this patient today ____ minutes.
--- NOTE | 2024-06-12 11:40 | P.OPN-COLO_ITS ---
Colonoscopy Operative Note Operative Note Date of Service: 06/12/24 Narrative: Procedure: Upper endoscopy and colonoscopy Indication: Espinosa's esophagus, LLQ pain Endoscopist: Polly Theodore MD Anesthesia Provider: Sonja Guerra MD Anesthesia type: MAC Instrument: [id number] and [id number] EGD Procedure:?? The procedure, indications, preparation and potential complications were reviewed with the patient, who indicated understanding and gave written informed consent to proceed. The endoscope was introduced through the mouth, and advanced to the 2nd part of the duodenum. The mucosa was carefully examined on slow withdrawal of the endoscope. The patient tolerated the procedure well. There were no immediate complications.? EGD Findings:? * Esophagus:? Normal esophageal mucosa was noted. The Z-line was at 36 cm. [place] colored mucosa was noted to extend up to 34 cm with one small island at 33 cm. Cold forceps biopsies were taken from 35, 34 and 33 cm for BE surveillance. Tissue cypher will be sent as well. * Stomach:? Normal gastric mucosa. Retroflexion was performed in the cardia. * Duodenum:? Normal duodenal mucosa. Colonoscopy Procedure:? The patient was then turned for the colonoscopy. A digital rectal exam was performed which was abnormal for external hemorrhoids.? A distal attachment cap was affixed to the tip of the scope and the colonoscope was then inserted through the anus and advanced through the colon and advanced to the cecum at 80 cm and terminal ileum.? Appendiceal orifice and ileocecal valve were identified. Mucosa was carefully examined under high definition white light as the instrument was slowly withdrawn in a retrograde panoramic fashion. Retroflexion was performed in rectum. The procedure was somewhat difficult due to a very fixed sigmoid colon but was able to maneuver using water immersion technique. The quality of the prep was BBPS: 3+2+2 = adequate Withdrawal time 12 minutes Limitations: No limitations Findings: Mucosa: Normal colon and terminal ileum mucosa. Protruding lesions: * 1 sessile polyp of size 3 mm was noted in transverse colon. Cold forceps polypectomy was performed. The polyp was completely removed and retrieved. * Large internal hemorrhoids without stigmata of recent bleeding. Excavated lesions: * Severe diverticulosis of left colon with fixed and slightly narrow sigmoid colon. Impression: 1. Short segment espinosa's (biopsy, tissue cypher) 2. Normal stomach 3. Normal duodenum 4. Normal colon and terminal ileum mucosa 5. 1 polyp removed 6. Diverticulosis 7. Internal and external hemorrhoids Recommendations:?? * Follow-up path and tissue cypher results * Avoid NSAIDs * LLQ pain due to diverticular disease vs adhesive disease vs retracted mesh with fluid collection (CT 04/2024). Will benefit from surgical evaluation. * Repeat colonoscopy for asymptomatic colorectal ca screening in 7-10 years.
[2024-06-12 11:44] VITALS: BP 111/61; PULSE 62; RESP 16; TEMP 36.1; O2SAT 98
--- NOTE | 2024-06-12 11:45 | HO.POSTANES ---
Post Anesthesia Evaluation Post Anesthesia Evaluation Date of Service: 06/12/24 Vital Signs: Vital Signs Temp Pulse Resp BP Pulse Ox O2 Del Method 06/12/24 10:24 98.5 F 68 16 139/74 98 Room Air Anesthesia: Monitored Mental Status: Awake Pain Control: Satisfactory Nausea/Vomiting: None Hydration: Adequate Anesthesia-Related Issues: No Anes. Related Issues
[2024-06-12 12:00] VITALS: BP 160/90; PULSE 60; RESP 16; O2SAT 100
[2024-06-12 12:15] VITALS: BP 171/84; PULSE 56; RESP 16; O2SAT 99
[2024-06-12 12:30] VITALS: BP 153/77; PULSE 69; RESP 16; O2SAT 99
[2024-06-12 12:45] VITALS: BP 153/72; PULSE 70; RESP 16; TEMP 36.4; O2SAT 99
== END 2024-06-12 14:04 | disposition home or self-care (01) ==
PROVIDERS: PCP Internal Medicine Geriatric Medicine; Visit Provider Internal Medicine
PROC: (CPT 45380; principal; 2024-06-12 11:50)
DX: R10.32 Left lower quadrant pain (principal); D12.3 Benign neoplasm of transverse colon; K57.30 Diverticulosis of large intestine without perforation or abscess without bleeding; K64.8 Other hemorrhoids; K64.4 Residual hemorrhoidal skin tags; K58.2 Mixed irritable bowel syndrome; R10.33 Periumbilical pain; K22.70 Barrett's esophagus without dysplasia; K44.9 Diaphragmatic hernia without obstruction or gangrene; I10 Essential (primary) hypertension; E11.9 Type 2 diabetes mellitus without complications; Q89.01 Asplenia (congenital); F41.9 Anxiety disorder, unspecified; M19.042 Primary osteoarthritis, left hand; M19.041 Primary osteoarthritis, right hand; Z98.890 Other specified postprocedural states; Z88.0 Allergy status to penicillin; Z88.8 Allergy status to other drugs, medicaments and biological substances; Z79.899 Other long term (current) drug therapy
CPT/HCPCS: 45380; 43239; 82947; 88305; 88313; J2003; J2704

== ENCOUNTER → 2024-06-12 09:51 | Outpatient (BNV) | payer MEDICARE, MEDICAID, SELFPAY | PROVIDERS: PCP Internal Medicine Geriatric Medicine; Visit Provider Internal Medicine | DX: K22.70 Barrett's esophagus without dysplasia (principal); D12.3 Benign neoplasm of transverse colon; K57.30 Diverticulosis of large intestine without perforation or abscess without bleeding; K64.8 Other hemorrhoids | CPT/HCPCS: 43239; 45380 ==

== ENCOUNTER 2024-06-23 07:38 | Day surgery (SDC) | payer MEDICARE, MEDICAID, SELFPAY ==
[2024-06-02 14:29] VITALS: BMI 28.5
--- NOTE | 2024-06-19 13:34 | HO.ANESPROP2 ---
Documented by User: Tanya Alford NP 06/19/24 13:34 HPI - Anesthesia Eval Consult details Narrative: 64yo F for Left Cataract Extraction IOL Insertion Right eye 06/09/24: Fent 25, Midaz 1 PMFSH Active Problems Active Problems: All Active Problems Pre-op examination (Acute) Strabismus (Acute) Attention deficit disorder (Acute) Periumbilical abdominal pain (Acute) SSBE (short-segment Quintana's esophagus) (Acute) GERD (gastroesophageal reflux disease) (Acute) Irritable bowel syndrome with both constipation and diarrhea (Acute) Past Medical History Medical History Raynauds phenomenon Renal calculi IBS (irritable bowel syndrome) GERD (gastroesophageal reflux disease) ADD (attention deficit disorder) Barretts esophagus Asplenia Depression with anxiety Hernia of abdominal wall Diabetes Osteoarthritis Hypertension Family History Family History Father Throat cancer Dementia Mother Abdominal aortic aneurysm Diverticulitis Brother Diverticulitis Family history of problems with anesthesia: No Surgical History Surgical History Hx of right cataract extraction History of incisional hernia repair History of pancreatectomy H/O splenectomy H/O esophagogastroduodenoscopy History of colonoscopy History of Problems with Anesthesia: No Social History Social History Household Members Other:: daughter Are you a primary career development consultant to a significant other at home: No Do you presently have visiting nurse or other home services: No Alcohol intake: current Alcohol intake frequency: does not drink Patient Tobacco Use Status: Never used Tobacco Use of substances other than those prescribed or required for medical reasons: Yes Substance Use Type: Marijuana Spiritual Healthcare Practices: none Religion Healthcare Practices: none Cultural Healthcare Practices: none Advance Directives Information Provided: Yes (as above noted) Advance Directives on File: No FDLMP: n/a Meds Allergies Allergy/AdvReac Type Severity Reaction Status Date / Time glyburide Allergy Severe severe Verified 06/12/24 10:22 hypoglycemia lisinopril [LISINOPRIL] Allergy Intermediate COUGH Verified 06/12/24 10:22 Penicillins [PENICILLINS] Allergy Intermediate HIVES Verified 06/12/24 10:22 Home Medications ?Medication ?Instructions ?Recorded ?Confirmed ?Last Taken ?Type clonazepam 0.5 mg tablet 1 mg PO BID PRN Anxiety 02/05/24 06/12/24 Unknown History lamotrigine 200 mg tablet 200 mg PO QAM 02/05/24 06/12/24 Unknown History metformin 500 mg tablet 500 mg PO BID 02/05/24 06/12/24 Unknown History metoprolol tartrate 50 mg tablet 50 mg PO BID 02/05/24 06/12/24 Unknown History omeprazole 20 mg capsule,delayed 20 mg PO QAM 02/05/24 06/12/24 Unknown History release amlodipine 2.5 mg tablet 2.5 mg PO DAILY 06/02/24 06/12/24 Unknown History atorvastatin 20 mg tablet 20 mg PO DAILY 06/02/24 06/12/24 Unknown History Exam Height,Weight and Vital Signs: Height 5 ft 1 in Weight 68.492 kg Assessment and Plan Assessment Anesthesia Assessment: Chart Reviewed Final Anesthetic Review Family History of Problems with Anesthesia: No History of Problems with Anesthesia: No Documented by User: Randee Dwyer MD 06/23/24 08:11 [facility] Past Medical History Medical History Raynauds phenomenon Renal calculi IBS (irritable bowel syndrome) GERD (gastroesophageal reflux disease) ADD (attention deficit disorder) Barretts esophagus Asplenia Depression with anxiety Hernia of abdominal wall Diabetes Osteoarthritis Hypertension Family History Family History Father Throat cancer Dementia Mother Abdominal aortic aneurysm Diverticulitis Brother Diverticulitis Surgical History Surgical History Hx of right cataract extraction History of incisional hernia repair History of pancreatectomy H/O splenectomy H/O esophagogastroduodenoscopy History of colonoscopy Social History Social History Household Members Other:: daughter Are you a primary career development consultant to a significant other at home: No Do you presently have visiting nurse or other home services: No Alcohol intake: current Alcohol intake frequency: does not drink Patient Tobacco Use Status: Never used Tobacco Use of substances other than those prescribed or required for medical reasons: Yes Substance Use Type: Marijuana Spiritual Healthcare Practices: none Religion Healthcare Practices: none Cultural Healthcare Practices: none Advance Directives Information Provided: Yes (as above noted) Advance Directives on File: No FDLMP: n/a Meds Allergies Allergy/AdvReac Type Severity Reaction Status Date / Time glyburide Allergy Severe severe Verified 06/12/24 10:22 hypoglycemia lisinopril [LISINOPRIL] Allergy Intermediate COUGH Verified 06/12/24 10:22 Penicillins [PENICILLINS] Allergy Intermediate HIVES Verified 06/12/24 10:22 Home Medications ?Medication ?Instructions ?Recorded ?Confirmed ?Last Taken ?Type clonazepam 0.5 mg tablet 1 mg PO BID PRN Anxiety 02/05/24 06/12/24 Unknown History lamotrigine 200 mg tablet 200 mg PO QAM 02/05/24 06/12/24 Unknown History metformin 500 mg tablet 500 mg PO BID 02/05/24 06/12/24 Unknown History metoprolol tartrate 50 mg tablet 50 mg PO BID 02/05/24 06/12/24 Unknown History omeprazole 20 mg capsule,delayed 20 mg PO QAM 02/05/24 06/12/24 Unknown History release amlodipine 2.5 mg tablet 2.5 mg PO DAILY 06/02/24 06/12/24 Unknown History atorvastatin 20 mg tablet 20 mg PO DAILY 06/02/24 06/12/24 Unknown History Exam Airway Mallampati Class: II TM Dist: >3cm Neck ROM: Full Heart: rrr Lungs: cta Assessment and Plan Assessment Anesthesia Assessment: Anesthesia Plan Discussed Final Anesthetic Review NPO: Yes ASA Class: II Final Preanesthetic Review: No Changes in Pt Med Stat, Meds/Allgs Chart Reviewed and Consent Obtained/Reviewed Patient Risk: Low Procedure Risk: Low Anesthetic Plan Anesthetic Plan: MAC: Disposition: Standard PACU
--- OUTSIDE RECORDS SUMMARY | 2024-06-23 07:41 | XMS_ITS | Encounter Summary ---
Author Organization [employer] Address [address] [place] [address] Care Team Providers Care Analysis Internship Name Role Phone NameVish MD Primary Care Provider [phone] Reason for Visit * Reason Comments Preoperative evaluation Encounter Details Date Type Department Care Team (Latest Contact Info) Description 05/27/2024 11:45 AM EST Office Visit [facility] [address] [place], [place] [phone] Name, MD Vish [address] [place] [address] Preop cardiovascular exam (Primary Dx); Diabetes mellitus without complication (CMS/HCC); Hypertension, unspecified type Social History Tobacco Use Types Packs/Day Years Used Date Smoking Tobacco: Never Passive Smoke Exposure: Never Smokeless Tobacco: Never Alcohol Use Standard Drinks/Week Comments Not Currently 0 (1 standard drink = 0.6 oz pur e alcohol) Depression Answer Date Recorded Patient Health Questionnaire-9 Score 20 10/24/2023 Patient Health Questionnaire-9 Score 20 10/24/2023 Last PHQ-9: Questionnaire Data Not on file 0 10/24/2023 Housing Stability Answer Date Recorded What is your housing situation today? I have [place] 03/29/[address] you li ve. Do you have problems with any of the following? None of the above 03/29/2023 Food Insecurity Answer Date Recorded Within the past 12 months, y ou worried that your food would run out before you got money to buy more: Sometimes True 2022 Within the past 12 months,th e food you bought just didn't last and you didn't have enough money to get more: Sometimes True 03/29/2023 Transportation Answer Date Recorded In the past 12 months, has l ack of transportation kept you from medical appts, meetings, work or from getting things needed for daily living? No 03/29/2023 Utilities Answer Date Recorded In the past 12 months, has t he electric, gas, oil or water company threatened to shut off services in your home? Yes 03/05/2023 Depression Answer Date Recorded Patient Health Questionnaire-2 Score 6 10/24/2023 Comments Unknown Sex and Gender Information Value Date Recorded Sex Assigned at Female 03/27/2022 10:16 AM EDT Legal Sex Female 10:16 AM EDT Gender Identity Female 03/27/2022 10:16 AM EDT Sexual Orientation Straight 03/27/2022 10 :16 AM EDT documented as of this encounter Last Filed Vital Signs Vital Sign Reading Time Taken Comments Blood Pressure 150/81 05/27/2024 12:03 PM EST Pulse 67 05/27/2024 12:03 PM EST Temperature 35.7 ??C (96.3 ??F) 05/27/2024 12:[address] Respiratory Rate 16 05/27/2024 12:03 PM EST Oxygen Saturation - - Inhaled Oxygen Concentration - - Weight 68.5 kg (151 lb) 05/27/2024 12:03 PM EST Height 154.9 cm (5' 1 ) 05/27/2024 12:03 PM EST Body Mass Index 28.53 05/27/2024 12:03 PM EST documented in this encounter Progress Notes * Vish Steward MD - 05/27/2024 11:45 AM EST Subjective Patient ID: Love Vilchis is a 63 y.o. female who presents for Preoperative evaluation. Patient comes for preoperative evaluation prior to cataract surgery and she is asymptomatic. She does not have any fevers, no chills, no chest pain, no shortness of breath. She has a good exercise tolerance. She can walk for several blocks without having to stop. She had multiple surgeries in the past and she did not have any problems with bleeding or anesthesia. She does not have CAD, no historyof CVA, no CHF, her creatinine is normal, she has type 2 diabetes treated with metformin. Patient Active Problem List Diagnosis Quintana's esophagus with esophagitis Diabetes mellitus without complication (CMS/HCC) Essential hypertension Hernia of abdominal wall Kidney stone Osteoarthritis of finger of left hand Raynaud's phenomenon Osteoarthritis of finger of right hand Severe episode of recurrent major depressive disorder, without psychotic features (CMS/HCC) H/O splenectomy [place] nodes of both hands Review of Systems Constitutional: Negative for chills and fever. HENT: Negative for sore throat. Respiratory: Negative for cough, shortness of breath and wheezing. Cardiovascular: Negative for chest pain, palpitations and leg swelling. Gastrointestinal: Negative for abdominal pain. Visit Vitals BP (!) 150/81 (BP Location: Right arm, Patient Position: Sitting, BP Cuff Size: Adult) Pulse 67 Temp 96.3 ??F (35.7 ??C) (Temporal) Resp 16 Ht 5' 1 (1.549 m) Wt 151 lb (68.5 kg) BMI 28.53 kg/m?? Smoking Status Never BSA 1.72 m?? Objective Physical Exam Constitutional: Appearance: Normal appearance. Cardiovascular: Rate and Rhythm: Normal rate and regular rhythm. Heart sounds: No murmur heard. No gallop. Pulmonary: Effort: Pulmonary effort is normal. No respiratory distress. Breath sounds: Normal breath sounds. No wheezing. Musculoskeletal: Right lower leg: No edema. Left lower leg: No edema. Neurological: Mental Status: She is alert. Lab Results Component Value Date GLUCOSE 122 (H) 02/16/2024 NA 144 02/16/2024 K 4.1 02/16/2024 CO2 27 02/16/2024 CL 109 (H) 02/16/2024 BUN 9 02/16/2024 CREATININE 0.6 05/26/2024 Lab Results Component Value Date HGBA1C 7.1 (A) 05/27/2024 Assessment/Plan Diagnoses and all orders for this visit: Preop cardiovascular exam Comments: The patient can proceed with her planned cataract surgery with low risk of cardiovascular complications. Diabetes mellitus without complication (CMS/HCC) - POCT Glucose - POCT HGB A1C Hypertension, unspecified type - metoprolol tartrate (Lopressor) 50 MG tablet; Take 1 tablet (50 mg) by mouth 2 times daily. Other orders - amLODIPine (Norvasc) 2.5 MG tablet; Take 1 tablet (2.5 mg) by mouth Once per day. documented in this encounter Plan of Treatment Not on file documented as of this encounter Procedures Procedure Name Priority Date/Time Associated Diagnosis Comments POCT GLYCATED HEMOGLOBIN, TOTAL Routine 05/27/2024 12:06 PM EST Diabetes mellitus without complication (CMS/HCC) POCT GLUCOSE Routine 05/27/2024 12:05 PM EST Diabetes mellitus without complication (CMS/HCC) documented in this encounter Results * (ABNORMAL) POCT HGB A1C (05/27/2024 12:06 PM EST) Hemoglobin A1C 7.1(A) 4.0 - 6.0 % QC Media Lot # [id number] Lot# Expiration Date [id number] Blood 05/27/2024 12:0 6 PM EST Vish Steward MD POINT OF CARE TEST ENTER/EDIT OR DERABLES Final Result * POCT Glucose (05/27/2024 12:05 PM EST) Glucose Blood, POC 111 60 - 200 mg/dL QC Media Lot # [id number] Lot# Expiration Date [id number] Blood Capillary blood specimen / Unknown 05/27/2024 12:05 PM EST Vish Steward MD POINT OF CARE TEST ENTER/EDIT OR DERABLES Final Result documented in this encounter Visit Diagnoses Diagnosis Preop cardiovascular exam- Primary Pre-operative cardiovascular examination Diabetes mellitus without complication (CMS/HCC) Type II or unspecified type diabetes mellitus without mention of complication, not stated as uncontrolled Hypertension, unspecified type documented in this encounter Additional Health Concerns Assessment Noted Time PHQ-9 Depression Total Score: 20 024 9:18 AM EDT documented as of this encounter Care Teams Analysis Internship Relationship Specialty Start Date End Date Name, MD Vish [address] [place] [address] PCP - General Family Medicine 10/12/17 documented as of this encounter
--- OUTSIDE RECORDS SUMMARY | 2024-06-23 07:41 | XMS_ITS | Encounter Summary ---
Author Organization [employer] Address [address] [place] [address] Care Team Providers Care Can Line Examiner Name Role Phone Name, Vish BERNABE Primary Care Provider [phone] Encounter Details Date Type Department Care Team ([facility] st Contact Info) Description 2024 Abstract [facility] [address] [place], [place] [phone] Name, MD Vish [address] [place] [address] Social History Tobacco Use Types Packs/Day Years [...] AM EDT documented as of this encounter Plan of Treatment Not on file documented as of this encounter Procedures Procedure Name Priority Date/Time Associated Diagnosis Comments COLONOSCOPY Routine 06/12/2024 documented in this encounter Results * Colonoscopy (06/12/2024) Colonoscopy Normal Normal 06/12/2024 Vish Name HEALTH MAINTENANCE Edited Result - Final documented in this encounter Visit Diagnoses Not on filedocumented in this encounter Additional Health Concerns Assessment Noted Time PHQ-9 Depression Total Score: 20 024 9:18 AM EDT documented as of this encounter Care Teams Can Line Examiner Relationship Specialty Start Date End Date Name, MD Vish [address] [place] [id number] PCP - General Family Medicine 10/12/17 documented as of this encounter
--- OUTSIDE RECORDS SUMMARY | 2024-06-23 07:41 | XMS_ITS | Encounter Summary ---
Author Organization [employer] Address [address] [facility] [address] [place] [address] Care Team Providers Care Plumber Pipe Fitting Name Role Phone Name, Vish BERNABE Primary Care Provider [phone] Encounter Details Date Type Department Care Team (Latest Contact Info) Description 01/11/2021 Abstract [facility]VERSION[facility] Dental, Provider, DDS Social History Tobacco Use Types Packs/Day Years Used Date Smoking Tobacco: Never Assessed Comments Unknown Sex and Gender Information Value Date Recorded Sex Assigned at Female 03/27/2022 10:16 AM EDT Legal Sex Female 10:16 AM EDT Gender Identity Female 03/27/2022 10:16 AM EDT Sexual Orientation Straight 03/27/2022 10 :16 AM EDT documented as of this encounter Plan of Treatment Not on file documented as of this encounter Visit Diagnoses Not on filedocumented in this encounter Care Teams Plumber Pipe Fitting Relationship Specialty Start Date End Date Name, MD Vish [address] [place] [id number] PCP - General Family Medicine 10/12/17 documented as of this encounter
--- OUTSIDE RECORDS SUMMARY | 2024-06-23 07:41 | XMS_ITS | Encounter Summary ---
Author Organization [employer] Address [address] [place] [address] Care Team Providers Care Instruction Dean Name Role Phone Name, Vish BERNABE Primary Care Provider [phone] Encounter Details Date Type Department Care Team (Late st Contact Info) Description 05/26/2024 Orders Only [facility] External Provider, [facility] Social History Tobacco Use Types Packs/Day Years [...] t he electric, gas, oil or water [employer] threatened to shut off services in your [...] Procedure Name Priority Date/Time Associated Diagnosis Comments CT ABDOMEN PELVIS W CONTRAST Routine 05/26/2024 4:33 PM EST documented in this encounter Results * CT Abdomen Pelvis w/ Contrast (05/26/2024 4:33 PM EST) Anatomical Region Laterality Modality Body, Pelvis, Abdomen Computed T omography 05/26/2024 4:33 PM EST Narrative 05/26/2024 4:34 PM EST ? [facility] ?[address] ?[place] [address] ? CT Scan Report ? Signed ? Patient: Love Vilchis ?MR#: [id number] ?? [id number] ? : 1960 ?Acct:[id number] ? Age/Sex: 63 / F ?ADM Date: 05/26/24 ? Loc: HO.CT ? Attending Dr: Rosalind Carey ANP-C ? Ordering Physician: Rosalind Carey-C ?? Date of Service: 05/26/24 ?? Procedure(s): CT abdomen pelvis w IV con ?? Accession Number(s): [id number] ? cc: Rosalind Carey-C; Name,Vish BERNABE ? Report Number: ?? [id number]: Total DLP = ??382.00 mGy-cm ? CLINICAL HISTORY: R10.33 - Periumbilical pain ? CT abdomen and pelvis with contrast ? Comparison: CT - CT ABDOMEN PELVIS W IV CON - 03/23/22 14:40 EDT ?? CT/[place]/SR - CT ABDOMEN PELVIS W IV CON - 03/23/22 14:21 EDT ? Findings: ? The visualized portions of the lungs are normal in appearance. ? The liver is normal in size without suspicious focal hepatic lesions. ?? Hepatic steatosis. Multiple small hypodensities are too small to ?? characterize statistically representing cyst or hemangioma. No ?? intrahepatic or extrahepatic ductal dilatation is seen. The hepatic and ?? portal veins are patent. No calcified gallstones in the gallbladder. ? Adrenals are unremarkable. Distal pancreatectomy. Splenectomy. ? No suspicious focal lesion of the kidneys. No hydronephrosis. There is a ?? stone in the right renal pelvis. ? The abdominal aorta demonstrates no evidence of aneurysmal dilatation or ?? dissection. ? Colonic diverticulosis. No evidence of bowel obstruction. Appendix is ?? normal. ? Possible uterine fibroid. ? No intraperitoneal free air is visualized. No pathologic lymphadenopathy ?? is seen. Status post mesh repair of supraumbilical ventral hernia. There ?? is retraction of the mesh with a 2 x 3 cm complex fluid collection ?? adjacent to the mesh series 3, image 29. There is a abutting of the fluid ?? collection to the transverse colon. ? There are no osseous or soft tissue abnormalities. ? IMPRESSION: ?? Status post mesh repair of supraumbilical ventral hernia. There is ?? retraction of the mesh. Grossly stable complex fluid collection adjacent ?? to the mesh. ?? Nonobstructing right kidney stone. ?? Colonic diverticulosis. ?? Additional findings as above. ? This document has been electronically signed by: Ander Iverson MD on ?? 05/26/2024 16:33:23 ? Dictated By: ?Ander Iverson MD ? Signed By: ?<Electronically signed by Ander Iverson MD in OV> ? 05/26/24 1634 ? DD/ 1633 ? TD/TT: 05/26/24 1633 ? Seafood Farmer: ? Procedure Note Whitney Rocha - 05/26/[address] [address] [address] Scan Report Signed Patient: Love Vilchis EMR#: [id number] : 1Acct:[id number] Age/Sex: 63 / FADM Date: 05/26/24 Loc: HO.CT Attending Dr: Rosalind LEVIEN Ordering Physician: Rosalind Carey Date of Service: 05/26/24 Procedure(s): CT abdomen pelvis w IV con Accession Number(s): [id number] cc: Rosalind Carey; Name,Vish Report Number: [id number]: Total DLP = 382.00 mGy-cm CLINICAL HISTORY: R10.33 - Periumbilical pain CT abdomen and pelvis with contrast Comparison: CT - CT ABDOMEN PELVIS W IV CON - 03/23/22 14:[address]/[place]/SR - CT ABDOMEN PELVIS W IV CON - 03/23/22 14:21 EDT Findings: The visualized portions of the lungs are normal in appearance. The liver is normal in size without suspicious focal hepatic lesions. Hepatic steatosis. Multiple small hypodensities are too small to characterize statistically representing cyst or hemangioma. No intrahepatic or extrahepatic ductal dilatation is seen. The hepatic and portal veins are patent. No calcified gallstones in the gallbladder. Adrenals are unremarkable. Distal pancreatectomy. Splenectomy. No suspicious focal lesion of the kidneys. No hydronephrosis. There is a stone in the right renal pelvis. The abdominal aorta demonstrates no evidence of aneurysmal dilatation or dissection. Colonic diverticulosis. No evidence of bowel obstruction. Appendix is normal. Possible uterine fibroid. No intraperitoneal free air is visualized. No pathologic lymphadenopathy is seen. Status post mesh repair of supraumbilical ventral hernia. There is retraction of the mesh with a 2 x 3 cm complex fluid collection adjacent to the mesh series 3, image 29. There is a abutting of the fluid collection to the transverse colon. There are no osseous or soft tissue abnormalities. IMPRESSION: Status post mesh repair of supraumbilical ventral hernia. There is retraction of the mesh. Grossly stable complex fluid collection adjacent to the mesh. Nonobstructing right kidney stone. Colonic diverticulosis. Additional findings as above. This document has been electronically signed by: Ander Iverson MD on 05/26/2024 16:33:23 Dictated By: Ander Iverson MD Signed By: <Electronically signed by Ander Iverson MD in OV> 05/26/24 1634 DD/ 1633 TD/TT: 05/26/24 1633 Seafood Farmer: [facility] External Provider IMG CT PROCEDURES Final Result documented in this encounter Visit Diagnoses Not on filedocumented in this encounter Additional Health Concerns Assessment Noted Time PHQ-9 Depression Total Score: 20 024 9:18 AM EDT documented as of this encounter Care Teams Instruction Dean Relationship Specialty Start Date End Date Name, MD Vish [address] [place] [address] PCP - General Family Medicine 10/12/17 documented as of this encounter
--- OUTSIDE RECORDS SUMMARY | 2024-06-23 07:41 | XMS_ITS | Encounter Summary ---
Author Organization [employer] Address [address] [place] [address] Care Team Providers Care Manager Of Care Name Role Phone Name, Vish BERNABE Primary Care Provider [phone] Reason for Visit * Reason Onset Date Comments Appointment Request 08/20/2023 Encounter Details Date Type Department Care Team ([facility] st Contact Info) Description 08/20/2023 Telephone [facility] MED[facility] [address] [place], [place] [phone] Name, MD Vish [address] [place], [place] [phone] Appointment Request Social History Tobacco Use Types Packs/Day Years Used Date Smoking Tobacco: Never Passive Smoke Exposure: Never Smokeless Tobacco: Never Alcohol Use Standard Drinks/Week Comments Not Currently 0 (1 standard drink = 0.6 oz pur e alcohol) Depression Answer Date Recorded Patient Health Questionnaire-9 Score 21 01/30/2023 Housing Stability Answer Date Recorded What is [...] Date Recorded Patient Health Questionnaire-2 Score 6 01/30/2023 Comments Unknown Sex and Gender Information Value Date Recorded Sex Assigned at Female 03/27/2022 10:16 AM EDT Legal Sex Female 10:16 AM EDT Gender Identity Female 03/27/2022 10:16 AM EDT Sexual Orientation Straight 03/27/2022 10 :16 AM EDT documented as of this encounter Miscellaneous Notes * Telephone Encounter - Kuldip Daniel - 08/20/2023 2:37 PM EDT Tc from pt stating had appt with pcp tomorrow 08/20 received reminder and had a note but there doesn't seem to be anything scheduled for tomorrow. Pt is requesting appt with pcp stated no concerns just wanted to follow up with provider. Please contact pt at [phone]. documented in this encounter Plan of Treatment Not on file documented as of this encounter Visit Diagnoses Not on filedocumented in this encounter Additional Health Concerns Assessment Noted Time PHQ-9 Depression Total Score: 21 023 11:49 AM EDT documented as of this encounter Care Teams Manager Of Care Relationship Specialty Start Date End Date Name, MD Vish [address] [place] [address] PCP - General Family Medicine 10/12/17 documented as of this encounter
--- OUTSIDE RECORDS SUMMARY | 2024-06-23 07:41 | XMS_ITS | Encounter Summary ---
Author Organization [employer] Address [address] [place] [address] Care Team Providers Care Sales And Service Consultant Name Role Phone Name, Vish BERNABE Primary Care Provider [phone] Encounter Details Date Type Department Care Team (Latest Contact Info) Description 05/27/2024 Travel Social History Tobacco Use Types Packs/Day Years [...] documented as of this encounter Care Teams Sales And Service Consultant Relationship Specialty Start Date End Date Name, MD Vish [address] [place] [address] PCP - General Family Medicine 10/12/17 documented as of this encounter
--- OUTSIDE RECORDS SUMMARY | 2024-06-23 07:41 | XMS_ITS | Encounter Summary ---
Author Organization [employer] Address [address]t [place] [address] Care Team Providers Care Wind Turbine Performance Engineer Name Role Phone Name, Vish BERNABE Primary Care Provider [phone] Reason for Visit * Reason Onset Date Comments r/s derm appt 07/20/2022 Encounter Details Date Type Department Care Team ([facility] st Contact Info) Description 07/20/2022 Telephone [facility] MEDICINE [address] [place], [place] [phone] Name, MD Vish [address] [place] [address] r/s derm appt Social History Tobacco Use Types Packs/Day Years Used Date Smoking Tobacco: Never Assessed Depression Answer Date Recorded Patient Health Questionnaire-9 [...] Orientation Straight 03/27/2022 10 :16 AM EDT COVID-19 Exposure Response Date Recorded In the last 10 days, have yo u been in contact with someone who was confirmed or suspected to have Coronavirus/COVID-19? No / Unsure 10/17/2022 2:48 PM EDT documented as of this encounter Miscellaneous Notes * Telephone Encounter - Dang Richard - 07/20/2022 8:51 AM EST Tc from pt requesting to r/s DERM NEW APPT scheduled for 08/18/22 @ 10am , states they can not do Fridays due to work. Please contact at [phone] documented in this encounter Plan of Treatment Not on file documented as of this encounter Visit Diagnoses Not on filedocumented in this encounter Care Teams Wind Turbine Performance Engineer Relationship Specialty Start Date End Date Name, MD Vish [address] [place] [address] PCP - General Family Medicine 10/12/17 documented as of this encounter
--- OUTSIDE RECORDS SUMMARY | 2024-06-23 07:41 | XMS_ITS | Encounter Summary ---
Author Organization [employer] Address [address] [place] [address] Care Team Providers Care Drywall Worker Name Role Phone Name, Vish BERNABE Primary Care Provider [phone] Reason for Visit * Reason Onset Date Comments Appointment Request 02/11/2024 Encounter Details Date Type Department Care Team ([facility] st Contact Info) Description 02/11/2024 Telephone [facility] MEDICINE [address] [place], [place] [phone] Name, MD Vish [address] [place] [address] Appointment Request Social History Tobacco Use Types [...] * Telephone Encounter - Dang Richard - 02/11/2024 3:34 PM EDT Tc from pt requesting to r/s TELE VISIT scheduled for with PCP , pt stated they are scheduled for CT SCAN on 02/20/24. Please contact at [phone] documented in this encounter Plan of Treatment Not on file documented as of this encounter Visit Diagnoses Not on filedocumented in this encounter Additional Health Concerns Assessment Noted Time PHQ-9 Depression Total Score: 20 024 9:18 AM EDT documented as of this encounter Care Teams Drywall Worker Relationship Specialty Start Date End Date Name, MD Vish [address] [place] [id number] PCP - General Family Medicine 10/12/17 documented as of this encounter
--- OUTSIDE RECORDS SUMMARY | 2024-06-23 07:41 | XMS_ITS | Encounter Summary ---
Author Organization [facility] Address [phone] [facility]ly [facility] [place] [address] Care Team Providers Care Tank Builder Helper Name Role Phone Name, Vish BERNABE Primary Care Provider [phone] Encounter Details Date Type Department Care Team (Late st Contact Info) Description 05/06/2019 Transcribe Orders Virtual Department [address] [place] [address] Catrachito Arenas MD [address] [place] [address] [email or web address] High risk medication use (Primary Dx) Social History Tobacco Use Types Packs/Day Years Used Date Smoking Tobacco: Never Assessed Sex and Gender Information Value Date Recorded Sex Assigned at Not on file Gender Identity Not on file Sexual Orientation Not on file documented as of this encounter Plan of Treatment Not on file documented as of this encounter Results * ECG 12-LEAD (05/06/2019 1:38 PM EST) Ventricular Rate EKG/MIN 69 BPM [facility] Atrial Rate 69 BPM [facility] MO Interval 180 ms [facility] QRS Duration 84 ms [facility] QT Interval 402 ms [facility] QTC Interval 430 ms [facility] P [place] 54 degrees [facility] R Wave [place] 83 degrees [facility] T Wave [place] 68 degrees [facility] 05/06/2019 1:38 PM EST 05/07/2019 12:15 PM EST Narrative [facility] - 05/07/2019 12:16 PM EST Normal sinus rhythm Normal ECG No previous ECGs available Confirmed by JAMAL ??LEOBARDO BERNABE ([id number]) on 05/07/2019 12:15:58 PM Catrachito Arenas MD ECG ORDERABLES [facility] documented in this encounter Visit Diagnoses Diagnosis High risk medication use- Primary High risk medication use documented in this encounter Care Teams Tank Builder Helper Relationship Specialty Start Date End Date Name, MD Vish [address] [place] [address] PCP - General Geriatric Psychiatry 05/06/19 documented as of this encounter Additional Source Comments The information contained in this document represents components of the legal health record. It is not the complete legal health record.[facility]
--- OUTSIDE RECORDS SUMMARY | 2024-06-23 07:41 | XMS_ITS | Encounter Summary ---
Author Organization [employer] Address [address] [place] [address] Care Team Providers Care Historian Dramatic Arts Name Role Phone Name, Vish BERNABE Primary Care Provider [phone] Encounter Details Date Type Department Care Team (Late st Contact Info) Description 06/09/2024 Orders Only GENERIC EXTERNAL DATA DEPARTMENT Provider, Generic External Data Social History Tobacco Use Types Packs/Day Years [...] as of this encounter Miscellaneous Notes * Result Encounter Note - Roxanna Vazquez MD - 06/09/2024 7:23 AM EST RBS of 138 at POC was done today, patient is DM. documented in this encounter Plan of Treatment Not on file documented as of this encounter Procedures Procedure Name Priority Date/Time Associated Diagnosis Comments GLUCOSE, WHOLE BLOOD Routine 06/09/2024 7:18 AM EST documented in this encounter Results * (ABNORMAL) Glucose, Whole Blood (06/09/2024 7:18 AM EST) Glucose, Whole Blood 138(H) 60 - 115 mg/dL [facility] Comment:METER #: [id number] 06/09/2024 7:18 AM EST 06/09/2024 7:22 AM EST us Generic External Data Provider LAB BLOOD ORDERAB LES Final Result [facility] [address] [place] [address] [phone] documented in this encounter Visit Diagnoses Not on filedocumented in this encounter Additional Health Concerns Assessment Noted Time PHQ-9 Depression Total Score: 20 024 9:18 AM EDT documented as of this encounter Care Teams Historian Dramatic Arts Relationship Specialty Start Date End Date Name, MD Vish [address] [place] [address] PCP - General Family Medicine 10/12/17 documented as of this encounter
--- OUTSIDE RECORDS SUMMARY | 2024-06-23 07:41 | XMS_ITS | Clinical Summary ---
Author Organization [employer] Address [address] [place] [address] Care Team Providers Care Ticket Sales Supervisor Name Role Phone Name, Vish BERNABE Primary Care Provider Allergies Active Allergy Reactions Criticality Noted Date Comments Amitriptyline 05/16/2010 Lisinopril Cough 01/29/2014 Penicillin V 05/16/2010 Simvastatin 09/30/2012 Other reaction(s): myalgia Topiramate Fever 05/16/2010 Medications * This document contains information received from the source organization and may not represent a complete record from that organization. cholecalciferol (Vitamin D-3) 50 MCG (1999) capsule Take 1 capsule by mouth 1 (one) time each day. 12/11/19 18 Active glucose blood (OneTouch Ultra) test strip 1 (one) time each day. 04/15/20 21 Active naproxen (Naprosyn) 500 MG tablet Take 1 tablet by mouth every 12 (twelve) hours. 03/29/20 21 Active clonazePAM (KlonoPIN) 1 MG tablet Take 1 mg by mouth if needed in the morning and at bedtime. 11/28/19 23 Active lamoTRIgine (LaMICtal) 200 MG tablet Take 1 tablet by mouth in the morning. 11/28/19 23 Active atorvastatin (Lipitor) 20 MG tablet TAKE ONE TABLET BY MOUTH EVERY MORNING 90 tablet 1 10/09/19 24 Active zolpidem CR (Ambien CR) 12.5 MG ER tablet TAKE 1 TABLET BY MOUTH EVERY NIGHT NEEDED FOR INSOMNIA. 09/14/19 24 Active lisdexamfetamine (Vyvanse) 50 MG capsule Take 1 capsule (50 mg) by mouth Once per day. 10/24/19 24 Active iohexol (OMNIPaque) 12 MG/ML solution oral contrast Take 500 mL by mouth 1 (one) time in imaging for 1 dose. 500 mL 12/10/19 24 Active bacitracin-polym yxin b (Polysporin) ointment Apply to affected area daily 15 g 05/12/20 24 025 Active metoprolol tartrate (Lopressor) 50 MG tabletIndication s:Hypertension, unspecified type Take 1 tablet (50 mg) by mouth 2 times daily. 180 tablet 3 05/27/20 24 Active amLODIPine (Norvasc) 2.5 MG tablet Take 1 tablet (2.5 mg) by mouth Once per day. 30 tablet 11 05/27/20 24 025 Active metFORMIN (Glucophage) 500 MG tablet TAKE ONE TABLET BY MOUTH TWICE A DAY (MORNING AND EVENING) WITH MEALS 180 tablet 1 05/30/19 25 Active omeprazole (PriLOSEC) [address] capsuleIndicatio ns:Diabetes mellitus without complication (CMS/HCC),Essent ial hypertension,Bar rett's esophagus with esophagitis TAKE ONE CAPSULE BY MOUTH EVERY DAY IN THE MORNING 90 capsule 1 05/30/19 25 Active metoprolol tartrate (Lopressor) 50 MG tabletIndication s:Hypertension, unspecified type TAKE ONE TABLET BY MOUTH IN THE MORNING AND AT BEDTIME. 180 tablet 3 07/12/19 24 024 Discontinued(Re order (will not trigger notification to Pharmacy)) omeprazole (PriLOSEC) [address] capsuleIndicatio ns:Diabetes mellitus without complication (CMS/HCC),Essent ial hypertension,Bar rett's esophagus with esophagitis TAKE ONE CAPSULE BY MOUTH EVERY DAY IN THE MORNING 30 capsule 3 10/01/19 24 025 Discontinued metFORMIN (Glucophage) 500 MG tablet TAKE ONE TABLET BY MOUTH TWICE A DAY (MORNING AND EVENING) WITH MEALS 60 tablet 3 11/26/19 24 025 Discontinued Active Problems Problem Noted Date Diagnosed Date Heberden nodes of both hands 05/12/2024 Assessment & Plan (05/12/2024 7:38 PM EST): Mostly asymptomatic. I explained to patient that they're related to OA Re consult prn erythema, discharge, pain. Take tylenol prn pain H/O splenectomy 10/24/2023 Overview (10/24/2023): 2000 at the time she had pancreatic pseudocyst removed Severe episode of recurrent major depressive disorder, without psychotic features 01/25/2023 Assessment & Plan (01/31/2023 8:11 AM EDT): Assessment: ?? Patient with anhedonia, down mood, low energy, no motivation, fluctuating appetite, difficulties focusing, slowed movement and speech, guilt, and shame in the context of financial instability, unemployment, and recent of a friend. Patient will benefit from attending therapy appointments and follow-up with psychiatrist thru her providers at [facility]. ?? At this time Love Vilchis meets criteria for Visit Diagnoses: Problem List Items Addressed This Visit ? Other ?? Severe episode of recurrent major depressive disorder, without psychotic features (CMS/HCC) ?? Patient ready to address current needs Yes Patient has services in place. ?? Strengths include wanting to seek help ?? PLAN: 1. Follow up with [facility]: Not recommended for follow-up 2. Patient goal is to engage in services 3. Behavioral Recommendations a. Patient will attempt to utilize coping skills discussed b. Patient will comply with medication c. Patient will attend appointments d. Patient may reach out to [facility], as needed Kidney stone 05/24/2022 Raynaud's phenomenon 05/24/2022 Hernia of abdominal wall 10/25/2017 Osteoarthritis of finger of left hand 04/27/2017 Osteoarthritis of finger of right hand 7 Quintana's esophagus with esophagitis 09/02/2015 Diabetes mellitus without complication 6 Essential hypertension 09/02/2015 Resolved Problems Problem Noted Date Diagnosed Date Resolved Date Cellulitis of index finger, left 05/12/2024 05/27/2024 Assessment & Plan (05/12/2024 7:37 PM EST): Over Heberden's nodes. Advised to keep it clean and dry. Use bacitracin on affected area until it dries up Use Doxy bid x 7d and fu with PCP. Cough 05/24/2022 10/24/2023 Suspected COVID-19 virus infection 05/24/2022 05/27/2024 Viral upper respiratory tract infection 05/24/2022 05/27/2024 Encounters Date Type Department Care Team Description [address] [address] Vish Steward MD 06/12/2024 Orders Only GENERIC EXTERNAL DATA DEPARTMENT Provider, Generic External Data 06/09/2024 Orders Only GENERIC EXTERNAL DATA DEPARTMENT Provider, Generic External Data 05/30/[address] [address] Vish Steward MD Diabetes mellitus without complication ([facility]/HCC); Essential hypertension; Quintana's esophagus with esophagitis 05/27/2024 11:45 AM EST Office Visit [address] [address] Vish Steward MD Preop cardiovascular exam (Primary Dx); Diabetes mellitus without complication ([facility]); Hypertension, unspecified type 05/27/2024 Travel 05/26/2024 Orders Only [facility] External Provider, [facility] 05/26/[address] [address] Wendy Nguyễn MA Chart Prep 05/19/[address] [address] Brie Heaton RN 05/12/2024 6:40 PM EST Office Visit [facility] [address] [place] [phone] Roxanna Vazquez MD Cellulitis of index finger, left (Primary Dx); Heberden nodes of both hands 05/12/2024 Telephone [facility] [address] [address] Vish Steward MD RESCHEDULE F/U APPT (Pt inquiring about cancelled appt on 05/13/24. Pt states that she did not cancel the appt via [employer] as she has not set that up. [employer] Counter Clerk advised that a message will be sent to Dr. Steward's [place] as there were no details written in appt notes, indicating what appt was for. [employer] Counter Clerk advised that Pre-Op was rescheduled from 05/14/24 to 05/27/24. Pt verbalized understanding. Pt can be reached at [phone].) 05/12/2024 Travel 05/07/[address] [address] Vish Steward MD Nurse Triage 04/08/[address] [phone] Vish Steward MD PT1 Approved 04/04/[address] [phone] Vish Steward MD PRE OP from Last 3 Months Immunizations Name Administration Dates Next Due Hep B, adult 12/11/2014 INFLUENZA VACCINE QUADRIVALE NT RECOMBINANT PRESERVATIVE FREE RIV4 03/04/2022,03/07/2020 Influenza Injectable Quadriv alant Preservative Free IIV4 MDCK 05/18/2023,03/12/2018 Influenza injectable quadriv alent IIV4 with preservative 03/13/2019,03/11/2018 Influenza injectable quadriv alent preservative free 02/18/2021,03/26/2015 Influenza, IIV3, injectable 01/26/2011, 0 Influenza, Split (incl. madeleine fied surface antigen) 04/02/2012 Influenza, seasonal, injecta ble, preservative free 02/06/2024 Meningococcal MCV4P ACYW-135 10/25/2017 Moderna Covid-19 Vaccine 12+ 04/12/2021,09/03/19 21,08/05/2020 Pfizer Covid-19 Vaccine 12+ Bivalent 03/14/2022 Pneumococcal Conjugate PCV 13 10/25/2017 Pneumococcal Conjugate PCV 20 10/24/2023 Pneumococcal Polysaccharide PPSV23 09/25/2001 Tdap 10/24/2023,11/03/2009 Social History Tobacco Use Types Packs/Day Years Used Date Smoking Tobacco: Never Passive Smoke Exposure: Never Smokeless Tobacco: Never Tobacco Cessation:Counseling Given: Not Answered Alcohol Use Standard Drinks/Week Comments Not Currently [...] Orientation Straight 03/27/2022 10 :16 AM EDT Last Filed Vital Signs Vital Sign Reading Time Taken Comments Blood Pressure 150/81 05/27/2024 12:03 PM EST Pulse 67 05/27/2024 12:03 PM EST Temperature 35.7 ??C (96.3 ??F) 05/27/2024 12:[address] Respiratory Rate 16 05/27/2024 12:03 PM EST Oxygen Saturation 99% 02/06/2024 9:44 AM EDT Inhaled Oxygen Concentration - - Weight 68.5 kg (151 lb) 05/27/2024 12:03 PM EST Height 154.9 cm (5' 1 ) 05/27/2024 12:03 PM EST Body Mass Index 28.53 05/27/2024 12:03 PM EST Plan of Treatment Health Maintenance Due Date Last Done Comments CT Colonography 1960 FIT DNA/Cologuard 1960 FIT 1960 FOBT 1960 HIV Screening 1960 Sigmoidoscopy 1960 HIB Vaccines (1 of 1 - Risk 1-dose series) 09/17/1961 Meningococcal B Vaccine (1 of 4 - Increased Risk) 1970 Hepatitis C Screening 1978 Pap Smear 1981 Zoster Vaccines (1 of 2) 2010 Hepatitis B Vaccines (2 of 3 - 19+ 3-dose series) 01/08/2015 12/11/2014 Meningococcal Vaccine (2 - Risk 2-dose series) 12/20/2017 10/25/2017 Cervical Cancer Screening 11/14/2022 HPV/Cotest 11/14/2022 11/14/2017 Mammogram 08/24/2023 08/23/2022, 07/27, 08/16/2021, Additional history exists Dental X-Ray: Full Mouth 01/13/2024 01/11/2021, 06/2019 SDOH Screening 01/26/2024 01/25/2023 COVID-19 Vaccine ( season) 2024 05/18/2023, 03/14/2022, 04/12/2021, Additional history exists Depression Monitoring (PHQ-9) 04/25/2024 10/24/2023, 10/24/2023 Dental Oral Exam 04/30/2024 10/29/2023, , 01/11/2021, Additional history exists Dental Prophylaxis 06/08/2024 12/06/2023, 0 01/29/2014, 07/25/2013, Additional history exists Diabetes: Hemoglobin A1C 08/25/2024 024, 02/06/2024, 10/24/2023, Additional history exists Depression Screening 10/23/2024 10/24/2023, 10/24/19 24 Diabetes: Foot Exam 10/23/2024 10/24/2023, 10/24/2023, 10/24/2023, Additional history exists Diabetes: Urine Protein Screening 10/23/2024 10/24/2023, 07/08/2021 Lipid Panel 10/23/2024 10/24/2023, 09/26, 07/08/2021, Additional history exists Dental X-Ray: Bitewings 10/29/2024 10/29/19 24, 06/07/2023, 01/11/2021, Additional history exists Eye Exam 12/13/2024 12/13/2022 Alcohol/Substance Use Screening 05/27/2025 05/27/2024 Tobacco Screening 05/27/2025 05/27/2024 Colonoscopy 06/12/2029 06/12/2024 Colorectal Cancer Screening 06/12/2029 DTaP/Tdap/Td Vaccines (3 - Td or Tdap) 10/23/2033 10/24/2023, 11/03/2009 RSV Patients and Patients Aged 60 years or older (1 - 1-dose 75+ series) 2035 Pneumococcal Vaccine: Pediatrics (0 to 5 Years) and At-Risk Patients (6 to 64 Years) Completed 10/24/2023, 10/25/2017, 09/25/2001 Influenza Vaccine Completed 02/06/2024, , 03/04/2022, Additional history exists HPV Vaccines Aged Out No longer eligi ble based on patient's age to complete this topic Hepatitis A Vaccines Aged Out No long er eligible based on patient's age to complete this topic IPV Vaccines Aged Out No longer eligi ble based on patient's age to complete this topic RSV under 20 months Aged Out No longe r eligible based on patient's age to complete this topic Rotavirus Vaccines Aged Out No longer eligible based on patient's age to complete this topic Procedures Procedure Name Priority Date/Time Associated Diagnosis Comments HEMATOXYLIN AND EOSIN STAIN Routine 06/12/2024 11:03 AM EST GLUCOSE, WHOLE BLOOD Routine 06/12/2024 10:40 AM EST HM COLONOSCOPY Routine 06/12/2024 GLUCOSE, WHOLE BLOOD Routine 06/09/2024 7:18 AM EST POCT GLYCATED HEMOGLOBIN, TOTAL Routine 05/27/2024 12:06 PM EST Diabetes mellitus without complication (CMS/HCC) POCT GLUCOSE Routine 05/27/2024 12:05 PM EST Diabetes mellitus without complication (CMS/HCC) CT ABDOMEN PELVIS W CONTRAST Routine 05/26/2024 4:33 PM EST POCT CREATININE GFR Routine 05/26/2024 8 :48 AM EST PROPHYLAXIS - ADULT Routine 12/06/2023 1 :00 PM EDT Dental plaque Dental calculus BITEWINGS - 4 RADIOGRAPHIC IMAGES Routine 10/29/2023 11:00 AM EDT PERIODIC ORAL EVALUATION - ESTABLISHED PATIENT Routine 10/29/2023 11:00 AM EDT ALBUMIN, RANDOM URINE W/CREATININE Routine 10/24/2023 10:25 AM EDT Diabetes mellitus without complication (CMS/HCC) Severe episode of recurrent major depressive disorder, without psychotic features (CMS/HCC) H/O splenectomy LIPID PANEL, STANDARD Routine 10/24/2023 10:25 AM EDT Diabetes mellitus without complication (CMS/HCC) Severe episode of recurrent major depressive disorder, without psychotic features (CMS/HCC) H/O splenectomy HM DIABETES EYE EXAM Routine 12/13/2022 BI MAMMOGRAM SCREENING TOMOSYNTHESIS BILATERAL Routine 08/23/2022 11:10 AM EDT DIAGNOSTIC - DIAGNOSTIC IMAGING - INTRAORAL - COMPREHENSIVE SERIES OF RADIOGRAPHIC IMAGES Routine 01/11/2021 12:00 AM EDT ZZZ HISTORICAL HPV MRNA E6/E7 Routine 11/14/2017 2:56 PM EDT from Last 3 Months or Most Recently Relevant to Health Maintenance Results * Hematoxylin and Eosin Stain (06/12/2024 11:03 AM EST) 06/12/2024 11:0 3 AM EST 06/12/2024 12:25 PM EST Narrative [facility] - 06/17/2024 10:15 AM EST ----- ------- Name: DengLove Maryjane ? Age/Sex: 63/F ? : 1960 Unit#: [id number] ?? Attend Dr: Polly Theodore MD ?Re06/12/24 ?Status: DEP SDC ? Location: HO.SSS ?Disch: ? ----- ------- SPEC : [id number] ?RECD: 06/12/24-5 ? STATUS: ??SOUT ? REQ NUM: [id number] ? LUIS: 06/12/24-1103 ? SUBM DR: Polly Theodore MD ? ENTERED: ??06/12/24-1250 ?SP TYPE: Surgical ? OTHR DR: Name,Vish BERNABE ? ORDERED: ??HE Stain/12, Gross Micro L4/4, Special st. 2, AB/PAS ? Diagnosis ?? A. ??Esophagus, 35 cm, biopsy: ?- Cardiac-type mucosa with mild chronic inactive inflammation; no intestinal ?? metaplasia seen. ?- Squamous mucosa within normal limits. ? B. ??Esophagus, 34 cm, biopsy: ?- Quintana esophagus with background moderate chronic inactive inflammation. ?- No dysplasia seen. ?- No squamous epithelium identified. ? C. ??Esophagus, 33 cm, biopsy: ??Squamous epithelium within normal limits; no inflammation ?? seen. ? D. ??Colon, transverse, polypectomy: ??Tubular adenoma; negative for high- grade dysplasia ?? or carcinoma. ? Comment: ??TissueCypher results for part B will be addended. ??Multiple additional levels ?? are examined on part D. ?Clinical History Pre-Op Dx: ??Quintana's esophagus w/o dysplasia, periumbilical pain per EMR Post-Op Dx: Hiatal hernia; Quintana's esophagus; diverticulosis, colon polyp, hemorrhoids ?Microscopic Description A-D. ??Microscopic sections examined. ??No metaplastic changes are seen, supported by AB/PAS stains (A) ? Material Received ?? A. Bx @ 35 cm ?? B. Bx @ 34 cm ?? C. Bx @ 33 cm ?? D. Transverse colon polyp ? Gross Description Received in four parts. Part A: ??Received in formalin labeled ?bx at 35 cm? are 3 morris-white and morris-pink irregular and rectangular tissue fragments ranging from minute to 0.45 cm, submitted in toto in a ? CONTINUED ON NEXT PAGE ----- ------- Name: DengLove Maryjane ? Age/Sex: 63/F ? : 1960 Unit#: [id number] ?? Attend Dr: Polly Theodore MD ?Re06/12/24 ?Status: DEP SDC ? Location: HO.SSS ?Disch: ? ----- ------- SPEC : [id number] ?RECD: 06/12/24-5 ? STATUS: ??SOUT ? REQ NUM: [id number] ? LUIS: 06/12/24-1103 ? SUBM DR: Polly Theodore MD ? ENTERED: ??06/12/24-1250 ?SP TYPE: Surgical ? OTHR DR: Name,Vish BERNABE ? ORDERED: ??HE Stain/12, Gross Micro L4/4, Special st. 2, AB/PAS ? Gross Description ?(Continued) cassette labeled A. Part B: ??Received in formalin labeled ?bx at 34 cm? are 2 morris-pink and pink-red irregular tissue fragments each measuring 0.25 cm, submitted in toto in a cassette labeled B. Part C: ??Received in formalin labeled ?bx at 33 cm are 2 jacobs-white irregular and rectangular tissue fragments measuring 0.2 and 0.3 cm, submitted in toto in a cassette labeled C. Part D: ??Received in formalin labeled ?transverse colon polyp? is a 0.25 cm morris-pink irregular tissue fragment, submitted in toto in a cassette labeled D. ??CEDS Special studies ordered and performed: AB/PAS stains on A Copies To: ?? Name,Vish BERNABE ?? [address] ?? [place] [address] ?? [phone] ?? Polly Theodore MD ?? [facility] ?? [address] ?? [place] [address] ?? [phone] ?? [email or web address] ----- ------- Signed (signature on file) Alex Dumont MD 06/17/24 1015 ? ----- ------- ? END OF REPORT ? Generic External Data Provider LAB BLOOD ORDERAB LES Final Result Performing Organization Address [facility] de Phone Number [facility] [address] [place] [address] [phone] * (ABNORMAL) Glucose, Whole Blood (06/12/2024 10:40 AM EST) Only the most recent of2 resultswithin the time period is included. Glucose, Whole Blood 118(H) 60 - 115 mg/dL [facility] Comment:METER #: [id number] 06/12/2024 10:4 0 AM EST 06/12/2024 10:43 AM EST Generic External Data Provider LAB BLOOD ORDERAB LES Final Result Performing Organization Address [facility] de Phone Number [facility] [address] [place] [address] [phone] * Hm Colonoscopy (06/12/2024) Colonoscopy Normal Normal 06/12/2024 Vish Steward MD HEALTH MAINTENANCE Edited Result - Final * (ABNORMAL) POCT HGB A1C (05/27/2024 12:06 PM EST) Hemoglobin A1C 7.1(A) 4.0 - 6.0 % QC Media Lot # [id number] Lot# Expiration Date [id number] Blood 05/27/2024 12:0 6 PM EST us Vish Name POINT OF CARE TEST ENTER/EDIT OR DERABLES Final Result * POCT Glucose (05/27/2024 12:05 PM EST) Glucose Blood, POC 111 60 - 200 mg/dL QC Media Lot # [id number] Lot# Expiration Date [id number] Blood Capillary blood specimen / Unknown 05/27/2024 12:05 PM EST us Vish Name POINT OF CARE TEST ENTER/EDIT OR DERABLES Final Result * CT Abdomen Pelvis w/ Contrast (05/26/2024 4:33 PM EST) Anatomical Region Laterality Modality Body, Pelvis, Abdomen Computed T omography 05/26/2024 4:33 PM EST Narrative 05/26/2024 4:34 PM EST ? [facility] ?[address] ?[place] [address] ? CT Scan Report ? Signed ? Patient: Love Vilchis ?MR#: [id number] ?? 0943 ? : 1960 ?Acct:[id number] ? Age/Sex: 63 / F ?ADM Date: 05/26/24 ? Loc: HO.CT ? Attending Dr: Rosalind Carey ANP-C ? Ordering Physician: Rosalind Carey ANP-C ?? Date of Service: 05/26/24 ?? Procedure(s): CT abdomen pelvis w IV con ?? Accession Number(s): [id number] ? cc: Carey,August ANP-C; Name,Vish BERNABE ? Report Number: ?? [id number]: Total DLP = ??382.00 mGy-cm ? CLINICAL HISTORY: R10.33 - Periumbilical pain ? CT abdomen and pelvis with contrast ? Comparison: CT - CT ABDOMEN PELVIS W IV CON - 03/23/22 14:40 EDT ?? CT/MI/SR - CT ABDOMEN PELVIS W IV CON [...] DD/ 1633 ? TD/TT: 05/26/24 1633 ? Signals Officer: ? Procedure Note Whitney Rocha - 05/26/[address] [address] [address] Scan Report Signed Patient: Love Vilchis EMR#: [id number] : 1Acct:[id number] Age/Sex: 63 / FADM Date: 05/26/24 Loc: HO.CT Attending Dr: Rosalind LEVINE Ordering Physician: Rosalind Carey Date of Service: 05/26/24 Procedure(s): CT abdomen pelvis w IV con Accession Number(s): [id number] cc: Rosalind Carey; Name,Vish Report Number: [id number]: Total DLP = 382.00 mGy-cm CLINICAL HISTORY: R10.33 - Periumbilical pain CT abdomen and pelvis with contrast Comparison: CT - CT ABDOMEN PELVIS W IV CON - 03/23/22 14:[address]/MI/SR - CT ABDOMEN PELVIS W IV CON [...] Iverson MD on 05/26/2024 16:33:23 Dictated By: nAder Iverson MD Signed By: <Electronically signed by Ander Iverson MD in OV> 05/26/24 1634 DD/ 1633 TD/TT: 05/26/24 1633 Signals Officer: [facility] External Provider IMG CT PROCEDURES Final Result * POCT Creatinine GFR (05/26/2024 8:48 AM EST) POCT Creatinine 0.6 0.5 - 1.4 mg/dL [facility] GFR POC >60 [facility] Comment:Chronic Kidney Disea se: Estimated GFR < 60 mL/min/1.44r1Mfvopj Kidney Disease: Estimated GFR < 15 mL/min/1.73m2 05/26/2024 8:48 AM EST 05/26/2024 4:17 PM EST Narrative [facility] - 05/26/2024 4:20 PM EST [id number] us Vish Steward MD LAB POINT OF CARE TEST DOCKED DE VICE ORDERABLES Final Result Performing Organization Address City/[facility]/ZIP Co de Phone Number [facility] [address] [place] [address] [phone] * (ABNORMAL) Albumin, Random Urine W/Creatinine (10/24/2023 10:25 AM EDT) Creatinine, Urine 17.43 mg/dL [facility] Microalbumin Urine 6.0 mg/L H [facility] Microalbum Creatinine Ratio Ur 34.4(H) <30 ug/mg cr [facility] Comment:Albumin/Creatinine R atio Reference Ranges: Normal: < 30 ug/mg creatinine Microalbuminuria: 30 - 300 ug/mg creatinineClinical Albuminuria: > 300 ug/mg creatinine Urine (Urine, Random) 10/24/2023 10:25 AM EDT 10/24/2023 11:16 AM EDT us Vish Steward MD LAB URINE ORDERABLES Final Resul t [facility] [address] [place] [address] [phone] * (ABNORMAL) Lipid Panel, Standard (10/24/2023 10:25 AM EDT) Triglycerides 269(H) <150 mg/dL [facility] Comment:Desirable Triglyceri de: less than 150 mg/dLBorderline High Triglyceride 150-199 mg/dLHigh Triglyceride: 200-499 mg/dLVery High Triglyceride: greater than or equal to 5OO mg/dL Cholesterol 277(H) <200 mg/dL [facility] Comment:Desirable Cholestero l: less than 200 mg/dLBorderline High Cholesterol: 200-239 mg/dLHigh Cholesterol: greater than 239 mg/dL LDL Cholesterol Calculated 171(H) <100 mg/dL [facility] Comment:Desirable LDL: less than 100 mg/dLNear Optimal/Above Optimal LDL: 110- 129 mg/dLBorderline High LDL: 130-159 mg/dLHigh LDL: 160-189 mg/dLVery High LDL: greater than or equal to 190 mg/dL HDL Cholesterol 53 >40 mg/dL [facility] Comment:Desirable HDL: great er than 40 mg/dL Note: This HDL assay may give artificially low results in patients with liver disease. Blood Venous blood specimen / Unknown 10/24/2023 10:25 AM EDT 10/24/2023 11:32 AM EDT us Vish Steward MD LAB BLOOD ORDERABLES Final Resul t [facility] [address] [place] [address] [phone] * Hm Diabetes Eye Exam (12/13/2022) Eye Exam Normal Normal us Vish Steward MD HEALTH MAINTENANCE Final Result * BI Mammogram Screening Tomosynthesis Bilateral (08/23/2022 11:10 AM EDT) Anatomical Region Laterality Modality Breast Bilateral Mammography 08/23/2022 11:1 0 AM EDT Narrative 08/24/2022 1:27 PM EDT ? [facility] ? [address] ?[place] [address] ? Mammography Report ? Signed ? Patient: Niblaynettmaryjane,Love E ?MR#: [id number] ?? 0943 ? : 1960 ?Acct:[id number] ? Age/Sex: 62 / F ?ADM Date: 08/23/22 ? Loc: HO.MAMMO ? Attending Charles Steward MD ? Ordering Physician: Name,Vish BERNABE ?Results: 1Negative ? Date of Service: 08/23/22 ?Follow Up: 1 Year From Orig ?? inal Mammogram ? Procedure(s): MM tomosynthesis screening BI ?? Accession Number(s): [id number] ? cc: Name,Vish BERNABE ? EXAMINATION: ?? MM SCREENING DIGITAL BREAST TOMOSYNTHESIS, BILATERAL ? CLINICAL INFORMATION: ? Screening. Asymptomatic. ? The lifetime risk of breast cancer based on the Tyrer-Cuzick Model is ?? 10%. ? COMPARISON: ?? Mammography: 08/16/2021, 10/25/2017, 12/09/2015 ? TECHNIQUE: ?? Digital breast tomosynthesis is performed in both the craniocaudal and ?? mediolateral oblique views along with computer-aided detection (CAD). ?? Synthesized 2D images are generated from the tomosynthesis. ? FINDINGS: ?? The breasts are almost entirely fatty (ACR BI-RADS breast composition ?? Category a). ? There are no significant masses, abnormal calcifications, or other ?? abnormalities. ??No architectural abnormality or developing density or ?? significant change from prior studies. The axilla are unremarkable. ? MM/MM tomosynthesis screening BI ?? IMPRESSION: ?? No mammographic evidence of malignancy. ? ASSESSMENT: ? BI-RADS 1: Negative ? RECOMMENDATION: ?? Routine annual mammography screening. ? This patient's information was entered into a reminder system with a ?? target due date for their next mammogram. ? Dictated By: ?Bear Breaux MD ? Signed By: ?<Electronically signed by Bear Breaux MD in OV> ?08/24/22 1325 ? DD/ 1110 ? TD/TT: ? Signals Officer: SILVA ? Procedure Note Josefina, Whitney - 08/24/2022 [facility] [address] [place] [address] Mammography Report Signed Patient: Love Vilchis EMR#: [id number] : 1960cct:[id number] Age/Sex: 62 / FADM Date: 08/23/22 Loc: HO.MAMMO Attending Dr: Vish Steward MD Ordering Physician: Vish Stewardesults: 1Negative Date of Service: 08/23/22Follow Up: 1 Year From Orig inal Mammogram Procedure(s): MM tomosynthesis screening BI Accession Number(s): [id number] cc: Vish Steward MD EXAMINATION: MM SCREENING DIGITAL BREAST TOMOSYNTHESIS, BILATERAL CLINICAL INFORMATION: Screening. Asymptomatic. The lifetime risk of breast cancer based on the Tyrer-Cuzick Model is 10%. COMPARISON: Mammography: 08/16/2021, 10/25/2017, 12/09/2015 TECHNIQUE: Digital breast tomosynthesis is performed in both the craniocaudal and mediolateral oblique views along with computer-aided detection (CAD). Synthesized 2D images are generated from the tomosynthesis. FINDINGS: The breasts are almost entirely fatty (ACR BI-RADS breast composition Category a). There are no significant masses, abnormal calcifications, or other abnormalities. No architectural abnormality or developing density or significant change from prior studies. The axilla are unremarkable. MM/MM tomosynthesis screening BI IMPRESSION: No mammographic evidence of malignancy. ASSESSMENT: BI-RADS 1: Negative RECOMMENDATION: Routine annual mammography screening. This patient's information was entered into a reminder system with a target due date for their next mammogram. Dictated By: Bear Breaux MD Signed By: <Electronically signed by Bear Breaux MD in OV> 08/24/22 1325 DD/ 1110 TD/TT: Signals Officer: SHIRA [facility] External Provider IMG BI PROCEDURES Final Result * HPV mRNA E6/E7 (11/14/2017 2:56 PM EDT) HPV mRNA E6/E7 Not Detected NOT DETECTED [facility] Comment: This test was performed using the APTIMA(R) HPV Assay ([employer] This assay detects E6/E7 viral messenger RNA (mRNA) from 14 high-risk HPV types (16,18,31,33,35,39,45,51, 52,56,58,59,66,68). For additional information please refer to: http://education.[employer].Telnexus/faq/DHI883z8 (This link is being provided for informational/ educational purposes only.) The analytical performance characteristics of this assay have been determined by [employer] [place], [place]. The modifications have not been cleared or approved by the FDA. This assay has been validated pursuant to the CLIA regulations and is used for clinical purposes. Test Performed by [facility] [employer] [place], [address] [place] [address] Rakan Cerda M.D., Ph.D., Director of Laboratories , CLIA [id number] Please note: ??Effective 02/07/2016, HPV testing will be performed using [employer]'s APTIMA test which targets mRNA. Detecting mRNA instead of DNA, as in older methods, offers significant improvements in specificity. 11/14/2017 2:56 PM EDT Caterina Delvis [facility] HISTORICAL/NON ORDERABLE LABS Final Result [facility] Anywhere [address] from Last 3 Months or Most Recently Relevant to [place] [id number] [facility] STAND ADULT Care Teams Ticket Sales Supervisor Relationship Specialty Start Date End Date Name, MD Vish [address] [place] [id number] PCP - General Family Medicine 10/12/17
--- OUTSIDE RECORDS SUMMARY | 2024-06-23 07:41 | XMS_ITS | Encounter Summary ---
Author Organization [employer] Address [address] [place] [address] Care Team Providers Care Concrete Stone Finisher Name Role Phone Name, Vish BERNABE Primary Care Provider [phone] Reason for Visit * Reason Comments Med Refill Encounter Details Date Type Department Care Team ([facility] st Contact Info) Description 05/30/2024 Refill [facility] MEDICINE [address] [place], [place] [phone] Name, MD Vish [address] [place], [place] [phone] Diabetes mellitus without complication (CMS/HCC); Essential hypertension; Quintana's esophagus with esophagitis Social History Tobacco Use Types Packs/Day Years [...] documented as of this encounter Visit Diagnoses Diagnosis Diabetes mellitus without complication (CMS/[facility]) Type II or unspecified type diabetes mellitus without mention of complication, not stated as uncontrolled Essential hypertension Unspecified essential hypertension Quintana's esophagus with esophagitis Quintana's esophagus documented in this encounter Additional Health Concerns Assessment Noted Time PHQ-9 Depression Total Score: 20 024 9:18 AM EDT documented as of this encounter Care Teams Concrete Stone Finisher Relationship Specialty Start Date End Date Name, MD Vish [address] [place] [address] PCP - General Family Medicine 10/12/17 documented as of this encounter
--- OUTSIDE RECORDS SUMMARY | 2024-06-23 07:41 | XMS_ITS | Encounter Summary ---
Author Organization [employer] Address [address] [place] [address] Care Team Providers Care Hydrocrane Operator Name Role Phone Name, Vish BERNABE Primary Care Provider Reason for Visit * Reason Onset Date Comments Chart Prep 05/26/2024 Encounter Details Date Type Department Care Team ([facility] st Contact Info) Description 05/26/2024 Telephone [facility] MEDICINE [address] [place], [place] [phone] Wendy Nguyễn MA Chart Prep Social History Tobacco Use Types Packs/Day Years [...] encounter Miscellaneous Notes * Telephone Encounter - Wendy Nguyễn MA - 05/26/2024 12:15 PM EST Chart Prep Labs: done Images: not done Vaccines due: Covid Due, Hep B Due, and Shingles in pharmacy Due Referrals: Radiology no show on 02/20/24 at 4 pm Screenings: Colonoscopy , Mammogram, HIV screening, and Cervical cancer, Hep C Overdue care gaps: A1C, Glucose, Sbirt, SDOH, and PHQ-9 documented in this encounter Plan of Treatment Not on file documented as of this encounter Visit Diagnoses Not on filedocumented in this encounter Additional Health Concerns Assessment Noted Time PHQ-9 Depression Total Score: 20 024 9:18 AM EDT documented as of this encounter Care Teams Hydrocrane Operator Relationship Specialty Start Date End Date Name, MD Vish [address] [place] [address] PCP - General Family Medicine 10/12/17 documented as of this encounter
--- OUTSIDE RECORDS SUMMARY | 2024-06-23 07:41 | XMS_ITS | Encounter Summary ---
Author Organization [employer] Address [address] [place] [address] Care Team Providers Care Tube Bending Machine Operator Name Role Phone Name, Vish BERNABE Primary Care Provider [phone] Reason for Visit * Reason Onset Date Comments Triage 07/31/2022 Encounter Details Date Type Department Care Team ([facility] st Contact Info) Description 07/31/2022 Telephone [facility] MEDICINE [address] [place], [place] [phone] Name, MD Vish [address] [place], [place] [phone] Triage Social History Tobacco Use Types Packs/Day Years Used Date Smoking Tobacco: Never Smokeless Tobacco: Never Alcohol Use Standard [...] encounter Miscellaneous Notes * Telephone Encounter - Cyndi Irene RN - 07/31/2022 8:56 AM EST Triage call Pt reports took home covid test 07/30 and was positive. Pt symptoms are mild with runny nose, nasal congestion, fever of 100.1, fatigue, dry cough, left ear pain, raspy voice, sore throat, nausea, lack of appetite, no taste/smell. Pt denies difficulty breathing, chest pain. Pt is advised to go to ED if fever of over 103, chest pain, difficulty breathing develops. Pt agrees. Home care disposition reviewed thoroughly and Pt agrees. Pt is given [employer] number [phone] to speak toclinician regarding paxlovid. no further questions offered. Protocol Used: COVID-19 - Diagnosed or Suspected (Adult) Protocol-Based Disposition: Home Care Positive Triage Question: * [1] COVID-19 diagnosed by positive lab test (e.g., PCR, rapid self-test kit) AND [2] mild symptoms (e.g., cough, fever, others) AND [3] no complications or SOB * All higher-acuity triage questions were negative Care Advice Discussed: * Reassurance and Education - Positive COVID-19 Lab Test and Mild Symptoms * General Care Advice for COVID-19 Symptoms * Cough Medicines * Cough Syrup With Dextromethorphan * Humidifier * Coughing Spells * Pain and Fever Medicines * Mild Stomach and Intestinal Symptoms During COVID-19 Illness * Reasons To Call Back - Fever over 103 F (39.4 C) - Fever lasts over 3 days - Fever returns after being gone for 24 hours - Chest pain or difficulty breathing occurs - You become worse * COVID-19 - How to Protect Others - When You Are Sick With COVID-19 * Clean Your Hands Often * FAQ - When Can I Stop Home Isolation If I Am Sick With COVID-19? * Telephone Encounter - Dang Richard - 07/31/2022 8:04 AM EST Patient calling to report positive for COVID , States has a cough, congestion, runny nose and a fever, pt is requesting antiviral treatment. Patient speaks Cambodian. Advised triage nurse will call patient back. Please contact at [phone] documented in this encounter Plan of Treatment Not on file documented as of this encounter Visit Diagnoses Not on filedocumented in this encounter Care Teams Tube Bending Machine Operator Relationship Specialty Start Date End Date Name, MD Vish [address] [place] [address] PCP - General Family Medicine 10/12/17 documented as of this encounter
--- OUTSIDE RECORDS SUMMARY | 2024-06-23 07:41 | XMS_ITS | Encounter Summary ---
Author Organization [employer] Address [address] [place] [address] Care Team Providers Care Dye Tank Tender Name Role Phone Name, Vish BERNABE Primary Care Provider [phone] Encounter Details Date Type Department Care Team (Late st Contact Info) Description 06/12/2024 Orders Only GENERIC EXTERNAL DATA DEPARTMENT [...] WHOLE BLOOD Routine 06/12/2024 10:40 AM EST documented in this encounter Results * Hematoxylin and Eosin Stain (06/12/2024 11:03 AM EST) 06/12/2024 11:0 3 AM EST 06/12/2024 12:25 PM EST Narrative [facility] - 06/17/2024 10:15 AM EST ----- ------- Name: Love Vilchis ? Age/Sex: 63/F ? : 1960 Unit#: [id number] ?? Attend Dr: Polly Theodore MD ?Re06/12/24 ?Status: [place] [facility] ? Location: HO.SSS ?Disch: ? ----- ------- SPEC : [id number] ?RECD: 06/12/24-5 ? STATUS: ??SOUT ? REQ NUM: [id number] ? LUIS: 06/12/24-1103 ? SUBM DR: Polly Theodore MD ? ENTERED: ??06/12/24-0 ?SP TYPE: Surgical ? OTHR DR: Vish Steward MD ? ORDERED: ??HE Stain/12, Gross Micro L4/4, [...] CONTINUED ON NEXT PAGE ----- ------- Name: Love Vilchis ? Age/Sex: 63/F ? : 1960 Unit#: [id number] ?? Attend Dr: Polly Theodore MD ?Re06/12/24 ?Status: [place] [facility] ? Location: HO.SSS ?Disch: ? ----- ------- SPEC : [id number] ?RECD: 06/12/245 ? STATUS: ??SOUT ? REQ NUM: [id number] ? LUIS: 06/12/24-3 ? SUBM DR: Polly Theodore MD ? ENTERED: ??06/12/24-1249 ?SP TYPE: Surgical ? OTHR DR: Name,Vish [...] Copies To: ?? Name,Vish BERNABE ?? [address] [facility] ?? [place] [address] ?? [phone] ?? Polly Theodore MD ?? [facility] ?? [address] ?? [place] ?? [phone] ?? [email or web address] ----- ------- Signed (signature on file) Alex Dumont MD 06/17/24 1015 ? ----- ------- ? END OF REPORT ? us Generic External Data Provider LAB BLOOD ORDERAB LES Final Result [facility] [address] [facility] [place] [address] [phone] * (ABNORMAL) Glucose, Whole Blood (06/12/2024 10:40 AM EST) Glucose, Whole Blood 118(H) 60 - 115 mg/dL [facility] Comment:METER #: [id number] 06/12/2024 10:4 0 AM EST 06/12/2024 10:43 AM EST us Generic External Data Provider LAB BLOOD ORDERAB LES Final Result Performing Organization Address City/State/[facility] [[email or web address]] Co de Phone Number [facility] [address] [place] [address] [phone] documented in this encounter Visit Diagnoses Not on filedocumented in this encounter Additional Health Concerns Assessment Noted Time PHQ-9 Depression Total Score: 20 024 9:18 AM EDT documented as of this encounter Care Teams Dye Tank Tender Relationship Specialty Start Date End Date Name, MD Vish [address] [place] [address] PCP - General Family Medicine 10/12/17 documented as of this encounter
--- OUTSIDE RECORDS SUMMARY | 2024-06-23 07:41 | XMS_ITS | Encounter Summary ---
Author Organization [employer] Address [address] [facility] 7t [place] [address] Care Team Providers Care Ruching Machine Operator Name Role Phone Name, Vish BERNABE Primary Care Provider [phone] Encounter Details Date Type Department Care Team ([facility] st Contact Info) Description 06/14/2022 Telephone [facility] MEDICINE [address] [place], [place] [phone] Name, MD Vish [address] [place] [address] Social History Tobacco Use Types Packs/Day Years [...] on filedocumented in this encounter Care Teams Ruching Machine Operator Relationship Specialty Start Date End Date Name, MD Vish [address] [place], [place] [phone] PCP - General Family Medicine 10/12/17 documented as of this encounter
--- OUTSIDE RECORDS SUMMARY | 2024-06-23 07:41 | XMS_ITS | Clinical Summary ---
Author Organization [facility] Address [phone] [facility] [place] [address] Care Team Providers Care Web Solutions Architect Name Role Phone Name, Vish BERNABE Primary Care Provider [phone] Social History Tobacco Use Types Packs/Day Years Used Date Smoking Tobacco: Never Assessed Education Answer Date Recorded Are you interested in more education? Not on julia e 09/21/2022 Are you concerned about learning? Not on file 09/21/2022 No 09/21/2022 No 09/21/2022 Digital Access Answer Date Recorded No 10/23/2022 No 10/23/2022 No 10/23/2022 Reliable internet access at home? Not on file 10/23/2022 Device with a working camera? Not on file Sex and Gender Information Value Date Recorded Sex Assigned at Not on file Gender Identity Not on file Sexual Orientation Not on file Plan of Treatment Not on file Medical Devices Not on file Care Teams Web Solutions Architect Relationship Specialty Start Date End Date Name, MD Vish [address] [place] [id number] PCP - General Geriatric Psychiatry 05/06/19 Additional Source Comments The information contained in this document represents components of the legal health record. It is not the complete legal health record.[facility]
[2024-06-23 08:01] VITALS: BP 147/73; PULSE 63; RESP 16; TEMP 37.2; O2SAT 98
[2024-06-23 08:07] LABS: Glucose, Whole Blood 140 mg/dL (60-115)
[2024-06-23] MEDS: Tetracaine HCl/PF 0.5% Oph Sol 4 ML DROPS 1 DROP EYE-LEFT (08:07)
[2024-06-23] MEDS: Cyclopentolate 1 % Ophth Sol 2 ML DRPBTL 1 DROP EYE-LEFT ×3 (08:07→08:12)
[2024-06-23] MEDS: Tropicamide 1 % Ophth Sol 3 ML BTL 1 DROP EYE-LEFT ×3 (08:08→08:13)
[2024-06-23] MEDS: Ketorolac Tromethamine 0.5% Op 10 ML DROPS 1 DROP EYE-LEFT ×3 (08:09→08:14)
[2024-06-23] MEDS: Phenylephrine HCL 2.5% Oph SoL 2 ML BOTTLE 1 DROP EYE-LEFT ×3 (08:09→08:14)
--- NOTE | 2024-06-23 08:16 | P.CONAN_ITS ---
[facility] Active Problems Active Problems: All Active Problems (Updated 06/02/24 @ 14:19 by Mitzi Steve RN) Pre-op examination (Acute) Strabismus (Acute) Attention deficit disorder (Acute) Periumbilical abdominal pain (Acute) SSBE (short-segment Quintana's esophagus) (Acute) GERD (gastroesophageal reflux disease) (Acute) Irritable bowel syndrome with both constipation and diarrhea (Acute) Past Medical History Medical History Raynauds phenomenon Renal calculi IBS (irritable bowel syndrome) GERD (gastroesophageal reflux disease) ADD (attention deficit disorder) Barretts esophagus Asplenia Depression with anxiety Hernia of abdominal wall Diabetes Osteoarthritis Hypertension Family History Family History Father Throat cancer Dementia Mother Abdominal aortic aneurysm Diverticulitis Brother Diverticulitis Family history of problems with anesthesia: No Surgical History Surgical History Hx of right cataract extraction History of incisional hernia repair History of pancreatectomy H/O splenectomy H/O esophagogastroduodenoscopy History of colonoscopy History of Problems with Anesthesia: No Social History Social History Household Members Other:: daughter Are you a primary overnight caregiver to a significant other at home: No Do you presently have visiting nurse or other home services: No Alcohol intake: current Alcohol intake frequency: does not drink Patient Tobacco Use Status: Never used Tobacco Use of substances other than those prescribed or required for medical reasons: Yes Substance Use Type: Marijuana Spiritual Healthcare Practices: none [facility] Healthcare Practices: none Cultural Healthcare Practices: none Advance Directives Information Provided: Yes (as above noted) Advance Directives on File: No FDLMP: n/a Meds Allergies Allergy/AdvReac Type Severity Reaction Status Date / Time glyburide Allergy Severe severe Verified 06/12/24 10:22 hypoglycemia lisinopril [LISINOPRIL] Allergy Intermediate COUGH Verified 06/12/24 10:22 Penicillins [PENICILLINS] Allergy Intermediate HIVES Verified 06/12/24 10:22 Active Medications: Current Medications Lactated Ringer's (Lr) 500 mls @ 50 mls/hr IV .Q10H SHON Stop: 06/23/24 17:59 Naloxone HCl (Naloxone Hcl 0.4 Mg/Ml Vial) 0.04 mg IVPUSH Q5M PRN PRN Reason: Excessive sedation or RR < 8 Povidone Iodine (Povidone Iodine 5 % Ophth Soln 30 Ml Bottle) 1 appl EYE-LEFT PREOP PRN PRN Reason: Pre-Op Surgical Implant Prophy Home Medications ?Medication ?Instructions ?Recorded ?Confirmed ?Last Taken ?Type clonazepam 0.5 mg tablet 1 mg PO BID PRN Anxiety 02/05/24 06/12/24 Unknown History lamotrigine 200 mg tablet 200 mg PO QAM 02/05/24 06/12/24 Unknown History metformin 500 mg tablet 500 mg PO BID 02/05/24 06/12/24 Unknown History metoprolol tartrate 50 mg tablet 50 mg PO BID 02/05/24 06/12/24 Unknown History omeprazole 20 mg capsule,delayed 20 mg PO QAM 02/05/24 06/12/24 Unknown History release amlodipine 2.5 mg tablet 2.5 mg PO DAILY 06/02/24 06/12/24 Unknown History atorvastatin 20 mg tablet 20 mg PO DAILY 06/02/24 06/12/24 Unknown History Exam Height,Weight and Vital Signs: Height 5 ft 1 in Weight 68.492 kg Last Vital Signs Temp 99.0 F 06/23/24 08:01 Pulse 63 06/23/24 08:01 Resp 16 06/23/24 08:01 BP 147/73 H 06/23/24 08:01 Pulse Ox 98 06/23/24 08:01 O2 Del Method Room Air 06/23/24 08:01 Pertinent Lab Results Pertinent Lab Results: Laboratory Tests 06/23/24 08:04 POC Glucose 140 H Airway Mallampati Class: II TM Dist: >3cm Neck ROM: Full Heart: rrr Lungs: cta Assessment and Plan Assessment Anesthesia Assessment: Anesthesia Plan Discussed and Chart Reviewed Final Anesthetic Review Family History of Problems with Anesthesia: No History of Problems with Anesthesia: No NPO: Yes ASA Class: II Final Preanesthetic Review: No Changes in Pt Med Stat, Meds/Allgs Chart Reviewed and Consent Obtained/Reviewed Patient Risk: Low Procedure Risk: Low Anesthetic Plan Anesthetic Plan: MAC: Disposition: Standard PACU
[2024-06-23] MEDS: Lactated Ringers 500 ML 50 ML IV (08:22)
--- NOTE | 2024-06-23 08:29 | MHC.SHP ---
Pre-Procedural Eval Section A - 24 Hr Update-Section A only Date of Service: 06/23/24 The patient is an INPATIENT: No Changes since office visit: No Cold of Flu in the past 2 weeks, No New Medical Problems, No Changes in Medication and No Patient answered all questions The patient has been examined within 24 hours of the surgical procedure. The History & Physical has been completed within 30 days and I have reviewed it.: Yes Section B - Complete if H&P > 30 days Chief Complaint: Age-related nuclear cataract, left eye Allergies: Allergies Allergy/AdvReac Type Severity Reaction Status Date / Time glyburide Allergy Severe severe Verified 06/12/24 10:22 hypoglycemia lisinopril [LISINOPRIL] Allergy Intermediate COUGH Verified 06/12/24 10:22 Penicillins [PENICILLINS] Allergy Intermediate HIVES Verified 06/12/24 10:22 Plan Diagnosis/Plan: Unchanged I have reviewed the history and physical and performed a pertinent physical examination on my patient. No changes have occurred unless specified. Time Spent With Patient Time: Total time managing care of this patient today ____ minutes.
--- NOTE | 2024-06-23 08:29 | HO.PNOPHT ---
Ophthalmology Procedure Procedure Date of Service: 06/23/24 Ophthalmology Viscoelastic: Healon Duet Dual Pack Pro Ophthalmology Lenses: IOL Acrysof MP - [id number] (20) Procedure Notes: PREOPERATIVE DIAGNOSIS: Decreased visual acuity left eye secondary to cataract POSTOPERATIVE DIAGNOSIS: Same PROCEDURE: Left cataract extraction with intraocular lens insertion SURGEON: Paulo Hastings M.D. ANESTHESIA: Topical/MAC ESTIMATED BLOOD LOSS: None COMPLICATIONS: None After obtaining informed consent, the patient was brought to the operation room suite and placed in the supine position. After adequate sedation per anesthesia, topical drops of Tetracaine were given to the left eye. The eye was then prepped and draped in the usual sterile fashion. The operating room microscope was then positioned over the operative eye and a lid speculum placed. A paracentesis was created. Viscoelastic was then instilled into the anterior chamber. A three plane incision was then created temporally, utilizing a 2.85 mm keratome. Capsulotomy forceps were then utilized to create a circular tear capsulotomy. Hydrodissection and hydrodelineation were carried out until adequate mobilization of the nucleus occurred. Phacoemulsification was then utilized to remove the dense central nucleus followed by removal of the cortical material utilizing the automated aspiration irrigation unit. Viscoat elastic was instilled into the posterior capsular bag followed by placement of a posterior chamber intraocular lens without difficulty. The residual Viscoat elastic was then removed utilizing the automated IA machine. The wound was check and found to be watertight. The patient tolerated the procedure well and the lid speculum was removed. Intracameral injection of Vigamox 0.1 mL followed by a subtenon injection of Kenalog-40 0.2 mL were administered. The patient will be seen in the a.m.
[2024-06-23 08:56] VITALS: BP 148/61; PULSE 52; RESP 16; TEMP 36.3; O2SAT 98
== END 2024-06-23 08:59 | disposition home or self-care (01) ==
PROVIDERS: PCP Internal Medicine Geriatric Medicine; Visit Provider Ophthalmology
PROC: (CPT 66985; principal; 2024-06-23 09:00)
DX: H25.12 Age-related nuclear cataract, left eye (principal); H52.4 Presbyopia; H50.10 Unspecified exotropia; I10 Essential (primary) hypertension; E11.9 Type 2 diabetes mellitus without complications; K22.70 Barrett's esophagus without dysplasia; I73.00 Raynaud's syndrome without gangrene; L30.9 Dermatitis, unspecified; F33.2 Major depressive disorder, recurrent severe without psychotic features; Z79.84 Long term (current) use of oral hypoglycemic drugs; Z79.899 Other long term (current) drug therapy; Z88.0 Allergy status to penicillin; Z88.8 Allergy status to other drugs, medicaments and biological substances; Z98.890 Other specified postprocedural states
CPT/HCPCS: 66984; 82947; J2250; J3301; V2630